=== PATIENT | male | born 1950 | race Caucasian/White ===

== ENCOUNTER 2016-11-28 20:30 | Outpatient (CLI) | payer BC, MEDICARE ==
--- OUTSIDE RECORDS SUMMARY | 2016-12-03 16:48 | XMS | Clinical Summary ---
:1950 Author Organization [facility] Address [address] [place] [address] Phone Care Team Providers Name Role Phone , Primary Care Provider Unavailable Allergies Not on File Current Medications Not on file Active Problems Not on file Social History Tobacco Use Types Packs/Day Years Used Date Never Assessed Sex Assigned at Date Recorded Not on file Last Filed Vital Signs Not on file Plan of Treatment Not on file Results Not on filefrom Last 3 Months
== END 2016-11-28 20:31 | disposition home or self-care (01) ==
LOC: SLEEPLAB 20:30
PROVIDERS: ATTEND Family Medicine
DX: G47.33 Obstructive sleep apnea (adult) (pediatric) (principal)
CPT/HCPCS: 95811

== ENCOUNTER 2016-12-30 13:03 | Outpatient (CLI) | payer BC, MEDICARE ==
[2016-12-30] MEDS ORDERED: ISOVUE-370 76%-LOCM 1 ML ONE (13:57)
--- NOTE | 2016-12-30 16:55 | CT ---
CONTRAST ENHANCED CT SOFT TISSUE NECK 12/30/16 HISTORY: Abnormal ultrasound. Evaluate for occlusion. Contrast enhanced CTA of the neck is obtained. 2D and 3D reconstructed images performed on an [employer] 3D workstation. Atherosclerotic calcification of the aorta is present. Calcifications seen in the left subclavian art arnav as well as right brachiocephalic artery and origin of the left common carotid artery. The right common carotid artery is patent. Atherosclerotic calcified and noncalcified plaque seen in the origin of the right ICA resulting in approximately 25 or 30% origin right ICA stenosis. No eviden ce of high grade stenosis or flow limiting lesions seen otherwise. The atherosclerotic plaque in the right ICA is eccentric in the medial aspect in the proximal portion of the right ICA. The left common carotid artery is patent. there is some diffuse intimal thickening in the distal left CCA. No evidence of significant stenosis however is seen. The left ICA demonstrates no significant e vidence of flow limiting lesions. There may be some diffuse soft tissue hypertrophy in the origin of the left ICA; however, this is not flow limiting and not significant. Surgical clips seen in the left carotid bifurcation. More distally, the left ICA remains the same caliber it does proximally. Normal flow seen in both vertebral arteries. IMPRESSION: Surgical changes seen in the left carotid bifurcation. No significant evidence of flow limiting lesio ns seen in the left ICA and at the surgical site in the distal left CCA. The right ICA demonstrates s ome focal eccentric area of calcified plaque in the proximal portion of the right ICA. POS: [facility]
== END 2016-12-30 13:04 | disposition home or self-care (01) ==
LOC: CT 13:03
PROVIDERS: ATTEND Thoracic Surgery (Cardiothoracic Vascular Surgery)
DX: I65.23 Occlusion and stenosis of bilateral carotid arteries (principal)
CPT/HCPCS: 70498

== ENCOUNTER 2017-04-03 14:26 | Inpatient (IN) | payer BC, MEDICARE ==
--- NOTE | 2017-04-03 14:56 | RAD ---
1 VIEW CHEST: Date: 04/03/17 COMPARISON: 02/23/16. HISTORY: Chest pain. FINDINGS: Stable left-sided transvenous pacemaker. There are sternotomy wires. Normal cardiac silhouette. Pulmo nary vessels are slightly prominent. Costophrenic angles are clear. Hyperinflation, without consolida tion or mass. No pneumothorax or acute osseous abnormalities. IMPRESSION: No acute cardiopulmonary process. No significant interval change. POS: [facility]
[2017-04-03 14:57] LABS: Hemoglobin 14.9 g/dL (14.0-18.0); Mean Corpuscular HGB CONC 32.7 g/dL (32.0-36.0); Mean Corpuscular Hemoglobin 31.9 pg (27.0-31.0); Mean Corpuscular Volume 97.5 fl (80.0-94.0); Mean Platelet Volume 7.1 fL (7.4-10.4); Platelet Count 311 thou/uL (130-400); RBC Distribution Width 11.7 % (11.5-14.5); Red Blood Cell (RBC) Count 4.67 mill/uL (4.70-6.10); White Blood Cell (WBC) Count 26.2 thou/uL (4.8-10.8)
[2017-04-03 15:02] LABS: INR-International Normal Ratio 1.1; PTT 26.1 SEC (22.9-36.1); Prothrombin Time 13.9 SEC (12.0-14.7)
[2017-04-03 15:10] LABS: ALT (SGPT) 19 U/L (8-55); AST (SGOT) 14 U/L (5-34); Alkaline Phosphatase 71 U/L (40-150); Anion Gap 11 mmol/L (10-20); BUN (Urea Nitrogen) 12 mg/dL (8.4-25.7); Bilirubin, Total 0.4 mg/dL (0.2-1.2); CK (CPK) 41 U/L (30-200); Calc. Creatinine Clearance 0 mL/min (70-130); Calcium 9.1 mg/dL (7.8-10.44); Carbon Dioxide 26 mmol/L (23-31); Chloride 101 mmol/L (98-107); Estimated GFR-MDRD 79; Globulin 3.6 g/dL (2.4-3.5); Glucose 207 mg/dL (80-115); Lipase 7 U/L (8-78); Potassium 3.9 mmol/L (3.5-5.1); Protein, Total 7.6 g/dL (5.8-8.1); Sodium 134 mmol/L (136-145)
[2017-04-03 15:11] LABS: Band 11 % (5-11); Lymphocytes 8 % (21-51); MDiff Complete? YES; Monocytes 4 % (0-10); Neutrophil 76 % (42-75); PLT Morphology Comment Appears Adequate; RBC Morphology Normal; Reactive Lymphocytes 1 % (0-10); Toxic Granulation SLIGHT
[2017-04-03 15:14] LABS: CKMB 1.9 ng/mL (0-6.6); Troponin I 0.046 ng/mL (< 0.028)
[2017-04-03 16:37] LABS: Bilirubin Negative (Negative); Blood, Urine Negative (Negative); Clarity CLEAR (Clear); Glucose, Urine (Dipstick) 500 mg/dL (Negative); Leukocyte Negative (Negative); Nitrite Negative (Negative); Protein, Urine (Dipstick) Negative (Neg-Trace); Specific Gravity, Urine 1.024 (1.002-1.036)
[2017-04-03] MEDS ORDERED: Clopidogrel Bisulfate 75 MG TAB PO SCH (17:00)
[2017-04-03] MEDS ORDERED: Digoxin 0.125 MG TAB PO SCH (17:00)
[2017-04-03] MEDS ORDERED: traMADol HCl 50 MG TAB PO PRN (17:12)
[2017-04-03] MEDS ORDERED: Lorazepam 1 MG TAB PO PRN (17:12)
[2017-04-03] MEDS ORDERED: Loratadine 10 MG TAB PO PRN (17:12)
[2017-04-03] MEDS ORDERED: Nitroglycerin 0.4 MG TAB (25 Tab Bottle) SL PRN (17:12)
[2017-04-03] MEDS ORDERED: Calcium Carbonate 500 MG ChewTAB PO PRN (17:12)
[2017-04-03] MEDS ORDERED: Mag-Al 1200 mg/1200 mg/30 ML UDCUP PO PRN (17:12)
[2017-04-03] MEDS ORDERED: Bisacodyl 5 MG TAB PO PRN (17:12)
[2017-04-03] MEDS ORDERED: cloNIDine 0.1 MG TAB PO PRN (17:12)
[2017-04-03] MEDS ORDERED: Benzonatate 100 MG CAP PO PRN (17:12)
[2017-04-03] MEDS ORDERED: Senokot 8.6 MG TAB PO PRN (17:12)
[2017-04-03] MEDS ORDERED: Diabetic Tussin 200 MG/10 ML UDCUP PO PRN (17:12)
[2017-04-03] MEDS ORDERED: hydrALAZINE 20 MG/ML VIAL SLOW IVP PRN (17:12)
[2017-04-03] MEDS ORDERED: Acetaminophen 325 MG TAB PO PRN (17:12)
[2017-04-03] MEDS ORDERED: Ondansetron HCl/PF 4 MG/2 ML Vial IVP PRN (17:12)
--- NOTE | 2017-04-03 17:35 | HP ---
PRIMARY CARE PHYSICIAN: Guevara Fairchild MD CHIEF COMPLAINT: Chest pain. HISTORY OF PRESENT ILLNESS: Mr. Sheikh a very pleasant 67-year-old male with known history o f coronary artery disease, status post CABG in the past as well as dyslipidemia; hypertension; atrial fibrillation; peripheral arterial disease in the form of coronary artery disease; and history of pac emaker, who presented to the emergency room with the above-mentioned complaints. History is mainly o btained by the patient himself and supplemented by his present in the room. Electronic medical records have been reviewed. The patient was last admitted to our facility in 02/2016 at which time shania polk was admitted for TIA and underwent a left carotid endarterectomy by Dr. Ponce. His primary cardio logist is Dr. Hoskins. The patient reports that he follows up with Dr. Hoskins every 6 months. Th ere are no recent changes in his medications and he is compliant with all of them. Mr. Sheikh reports that he has been feeling fine up until this morning. Today when he was drinking his morning coffee, he had sudden onset of chest pain. He describes it as a heavy and squeezing sensati on. It was about 7/10 in intensity. It started as pain in bilateral wrists and later he felt the pr essure in the upper epigastric and lower retrosternal area. He sat down and did eventually eased jarret y. Later while he was driving into town, he had another episode of similar chest pain in the same sp ot associated with radiation to both arms. It was also associated with some nausea and diaphoresis a s well. He denies any shortness of breath. He denies any similar symptoms recently. He has otherwi se been in his usual health and has no recent illnesses. He drove into the emergency room at the out side hospital and was eventually transferred to our facility for further evaluation. In our emergenc y room, he was found to have mild borderline elevated troponin at 0.046. He is now being admitted fo r further workup for chest pain, possible unstable angina. His chest x-ray is unremarkable and 12-le ad EKG does not show any acute ST or T-wave changes. The patient has undergone steroid injection in one of his knees by [facility]. PAST MEDICAL HISTORY: 1. Coronary artery disease, status post bypass graft. 2. History of carotid arterial disease, status post left carotid endarterectomy. 3. History of pacemaker placed. 4. CVA and TIA in the past. 5. Hypertension. 6. Dyslipidemia. 7. History of atrial fibrillation. 8. Gastroesophageal reflux disease. 9. GERD. 10. Question a history of hepatitis C. PAST SURGICAL HISTORY: 1. Coronary artery bypass graft 2 vessels in 1998. 2. Pacemaker. 3. Cardiac stenting 2-3. 4. Bilateral shoulder surgery. 5. Left carotid endarterectomy. PSYCHIATRIC HISTORY: No anxiety, depression. SOCIAL HISTORY: He is and lives with his family. No history of drug, tobacco, or alcohol ab use. FAMILY HISTORY: Significant for coronary artery disease in both of his parents. No diabetes or hype rtension runs in his family. CODE STATUS: FULL CODE discussed with the patient and his present in the room. ALLERGIES: AGGRENOX, AMBIEN, REMERON. MEDICATIONS: Aspirin 325 mg in the morning, but the patient reports that it was changed to [address] Hoskins few months ago, Protonix 40 mg daily, metoprolol unknown if it is a tartrate or succinat e, but listed as 25 mg daily, digoxin 0.125 mcg daily, Crestor 10 mg daily, Zetia 10 mg daily, Plavix 75 mg daily. REVIEW OF SYSTEMS: The following complete review of systems was negative, unless otherwise mentioned in the HPI or below: Constitutional: Weight loss or gain, ability to conduct usual activities. Sk in: Rash, itching. Eyes: Double vision, pain. ENT/Mouth: Nose bleeding, neck stiffness, pain, te nderness. Cardiovascular: Palpitations, dyspnea on exertion, orthopnea. Respiratory: Shortness of breath, wheezing, cough, hemoptysis, fever or night sweats. Gastrointestinal: Poor appetite, abdom inal pain, heartburn, nausea, vomiting, constipation, or diarrhea. Genitourinary: Urgency, frequenc y, dysuria, nocturia. Musculoskeletal: Pain, swelling. Neurologic/Psychiatric: Anxiety, depressio n. Allergy/Immunologic: Skin rash, bleeding tendency. LABORATORY AND DIAGNOSTIC DATA: CBC shows WBC 26.2, platelet of 311,000, neutrophils 76%, hemoglobin 14.9, platelet count of 311. PT, PTT, and INR within normal limits. Serum chemistries: Sodium 134 , blood sugar 207, otherwise unremarkable. CK-MB is normal at 1.2, troponin mildly elevated at 0.046 and BNP normal at 55, lipase is normal. Chest x-ray by my review was negative for any acute infiltr ate, effusion, or edema. A 12-lead EKG without any acute changes. PHYSICAL EXAMINATION: VITAL SIGNS: Upon presentation, blood pressure 152/79, pulse of 77, saturating 96% on room air, resp irations 20, temperature 98. GENERAL: No acute distress, awake, alert, and oriented x3, sitting comfortably in the bed. HEENT: Mucous membrane is moist and pink. No oropharyngeal exudate or erythema. Head is normocepha lic, atraumatic. Pupils are equal, reactive to light and accommodation. Extraocular movements are i ntact. NECK: Supple without any lymphadenopathy, JVD, or bruit. CHEST: Clear to auscultation without any wheezing, rales, or rhonchi. Rate and rhythm is regular wi thout any murmur, rubs, or gallops. ABDOMEN: Obese, soft, nontender, nondistended, positive bowel sounds. EXTREMITIES: Free of any cyanosis, clubbing, or edema. NEUROLOGIC: Nonfocal. SKIN: Free of any rashes or bruises. Feels warm and dry to touch. PSYCHIATRIC: Normal affect. IMPRESSION AND PLAN: 1. Chest pain. Given the patient's extensive history of peripheral arterial disease as well as sully nary artery disease, his symptoms sound atypical and it can possibly be angina. We will continue to trend serial cardiac enzymes and obtain a transthoracic echocardiogram at this time. We will consult Cardiology for further recommendations. The patient might need a repeat cardiac catheterization. A t this time, we will defer the decision to order a stress test with Cardiology colleagues. We will c ontinue his aspirin and beta morales as well as his Plavix. Use sublingual nitroglycerin as needed. For some reason, the patient is not on any TAIWO inhibitors. 2. Leukocytosis. This is secondary to the steroid injection he has received in his knee yesterday. No clinical signs or symptoms to suggest infection. No indication for antibiotic or sepsis workup. 3. History of atrial fibrillation. The chart review reviewed that the patient has declined anticoag ulation in the past. This will continue to be managed by Cardiology as an outpatient. He is in norm al sinus rhythm at this time. Continue digoxin for now along with the beta blockers. 4. History of cerebrovascular accident and transient ischemic attack. Once again, continue with asp irin and Plavix. 5. History of coronary artery disease, status post coronary artery bypass graft and stenting. Carley nue cardiac prudent medications as above. 6. History of pacemaker placement. 7. Dyslipidemia. Continue Zetia and Crestor and recheck a lipid panel. 8. Carotid arterial disease. He is status post left carotid endarterectomy and is being followed up by Dr. Gray as an outpatient. 9. Hypertension. Resume home medications and monitor closely. 10. Code status: FULL CODE. Discussed with the patient. 11. Deep venous thrombosis and gastrointestinal prophylaxis and supportive and symptomatic care. DISPOSITION: Mr. Sheikh is currently being admitted for chest pain, likely angina. Further management will depend upon his clinical course and the recommendations from Cardiology.
[2017-04-03 17:41] VITALS: BMI 30.4
[2017-04-03 17:48] LABS: Cardiac Risk 2.9 (Less than 4.5)
[2017-04-03 18:29] LABS: Troponin I 0.071 ng/mL (< 0.028)
[2017-04-03] MEDS: Digoxin 0.125 MG TAB PO SCH (20:24)
[2017-04-03] MEDS: Clopidogrel Bisulfate 75 MG TAB PO SCH (20:25)
[2017-04-03] MEDS: Ezetimibe 10 MG TAB PO SCH (20:25)
[2017-04-03] MEDS: Famotidine 20 MG TAB PO SCH (20:25)
[2017-04-03] MEDS: Rosuvastatin 10 MG TAB PO SCH (20:25)
[2017-04-03] MEDS ORDERED: Enoxaparin Sodium 40 MG/0.4 ML SYRINGE SC SCH (21:00)
[2017-04-03 21:12] LABS: Troponin I 0.073 ng/mL (< 0.028)
--- NOTE | 2017-04-03 23:25 | CON ---
DATE OF CONSULTATION: 04/03/2017 INDICATION FOR CONSULTATION: A 67-year-old patient with history of known coronary artery disease, st atus post bypass surgery, status post angioplasty and stent placement, who presented to the emergency room complaining of chest discomfort. HISTORY OF PRESENT ILLNESS: This very pleasant 67-year-old gentleman, who has been seen by Dr. Mario hopkins in the past and has undergone bypass surgery. I believe he said he underwent surgery back in 9 with 2-vessel bypass. After that, he underwent angioplasty and stent placement. He also had pacem rip insertion in 2003. He has had a left carotid endarterectomy by Dr. Ponce. He had a TIA in 7. He has actually been doing quite well and he says he has actually been due to some remodeling. Rosy polk was at home this morning, had a cup of coffee and then started developing some chest discomfort whi ch was actually in the upper abdominal area and chest area, but he said he developed hand numbness th at kind of resolved after he took an aspirin. He then felt better and around 12:00 today or 12:30 wh en he went to get into his truck, he noticed some of the same symptoms again. He then went to the em ergency room and was given nitroglycerin. At the time he arrived to the emergency room, the pain was already resolving. He has had the worst pain, got worse 7/10. He was given nitroglycerin and the p ain has slowly been resolved. Also, again just like it did with the aspirin, but he did appear to be somewhat short of breath and clammy according to the patient's history. Otherwise at this time, he is comfortable. His EKG does not show any acute changes. His enzymes are still indeterminate. His troponin I was 0.046. The BNP was only 55. His potassium was 3.9. Of note, his WBC was 26.2 with h emoglobin 14.9. He denied any recent fevers or illnesses, however. PAST MEDICAL HISTORY: Significant for bypass surgery, angioplasty, and stent placement. We are unce rtain as to which vessels were underwent angioplasty and stent placement. He had a pacemaker in 2003 , bypass surgery was in 1998. He has some history in the past also of atrial fibrillation and dyslip idemia. He has a hiatal hernia. He had a left carotid endarterectomy, bilateral cataract surgery ab out a year and a half ago, gastroesophageal reflux disease. He also had a TIA in 2017. SOCIAL HISTORY: He is . He stopped smoking about 20 years ago. He has no alcohol use. ALLERGIES: None. MEDICATIONS: Include Crestor 10 mg a day, Zetia 10 mg a day, Protonix 40 mg a day, metoprolol ER 25 mg b.i.d., digoxin 125 mcg daily, fish oil 1200 mg daily, Plavix 75 mg a day, and aspirin 325 mg once a day. REVIEW OF SYSTEMS: Twelve point review of systems is unremarkable, so he complains of some decreased vision associated with this adequate cataract surgery. He also complains of some knee pain, which m ost likely osteoarthritis. Otherwise, 12 point review of systems unremarkable except what was noted in the history of present illness. PHYSICAL EXAMINATION: GENERAL: Reveals a well-developed, well-nourished gentleman, who is in no acute distress at this [facility]. He is alert and oriented. VITAL SIGNS: Blood pressure was inaccurate, heart rate was in the 80s and 90s and shows a normal sin us rhythm. O2 saturation 98%, respiratory rate 18. His weight is 210 pounds. HEENT: Shows head to be normocephalic, atraumatic. He has a well healed surgical incision over the left carotid area. There were no significant bruits noted. CHEST: Clear to auscultation without rales, rhonchi, or wheezing. CARDIOVASCULAR: Exam reveals a regular rate and rhythm. Normal S1, S2. I cannot hear an S3 nor an S4, or any significant murmurs, heaves, thrills, bruits, or rubs. There is a well-healed surgical in cision on the left infraclavicular area after pacemaker insertion. ABDOMEN: Soft and nontender, obese. Positive bowel sounds are present. No tenderness is noted. No masses were noted. EXTREMITIES: Showed no clubbing, cyanosis, or edema. Pedal pulses are difficult to palpate but popl iteal pulses are present. SKIN: Warm and dry. NEUROLOGIC: The patient is fully intact. He has normal strength and normal tone. He is appropriate psychologically. EKG shows a normal sinus rhythm with occasional PVCs and incomplete right bundle branch block, but no acute changes otherwise are noted. LABORATORY DATA: As noted above, but gives elevated white blood cell count of 26.2, platelet count w as 311, hemoglobin is 14.9. He had 11 bands and 76 neutrophils. INR 1.1. Again, troponin is 0.046, BNP was 55 and creatinine 0.95. Sodium 134. At this time, the patient will [facility]. We will monitor him very carefully. I would suggest we start him on Lovenox and then ru le out for myocardial infarction. If indicated, the patient can undergo a cardiac catheterization on Thursday. If he stabilizes and perhaps, he can undergo a stress test tomorrow morning to rule out tona dence of underlying ischemia. We will review his records from the office to see whether or not he forte s had any significant workup recently if he has had a stress test or echocardiogram. IMPRESSION: 1. Chest pain with a history of coronary artery disease, bypass surgery and angioplasty and stent pl acements. We will monitor the patient very carefully for non-ST segment elevation myocardial infarct ion. 2. History of hypertension, which is under relatively good control at this time. 3. Hypercholesterolemia. He will continue his medications. 4. History of pacemaker insertion. We will determine whether or not this has been recently interrog ated. I believe, he does follow up routinely with Dr. Hoskins. 5. History of gastroesophageal reflux disease. We will continue on some type of Protonix, this may be the etiology of his chest discomfort. 6. History of transient ischemic attacks. He does not appear to be having transient ischemic attack s at this time and appears to be stable after he underwent left carotid endarterectomy.
[2017-04-04] MEDS: diphenhydrAMINE 25 MG CAP PO PRN ×2 (03:12→21:12)
[2017-04-04 04:23] LABS: #Lymphocytes 3.6 thou/uL (1.20-3.40); #Monocytes 2.4 thou/uL (0.11-0.59); %Basophils 0.1 % (0.0-1.0); %Eosinophils 0.2 % (0.0-10.0); %Lymphocytes 14.3 % (21.0-51.0); %Monocytes 9.7 % (0.0-10.0); %Neutrophils 75.8 % (42.0-75.0); Hemoglobin 14.4 g/dL (14.0-18.0); Mean Corpuscular HGB CONC 33.8 g/dL (32.0-36.0); Mean Corpuscular Hemoglobin 32.8 pg (27.0-31.0); Mean Corpuscular Volume 97.1 fl (80.0-94.0); Mean Platelet Volume 7.4 fL (7.4-10.4); Platelet Count 274 thou/uL (130-400); Red Blood Cell (RBC) Count 4.39 mill/uL (4.70-6.10)
[2017-04-04 04:34] LABS: Anion Gap 8 mmol/L (10-20); BUN (Urea Nitrogen) 13 mg/dL (8.4-25.7); Calc. Creatinine Clearance 111 mL/min (70-130); Carbon Dioxide 29 mmol/L (23-31); Chloride 102 mmol/L (98-107); Estimated GFR-MDRD 86; Glucose 138 mg/dL (80-115); Sodium 135 mmol/L (136-145)
[2017-04-04] MEDS: Aspirin 325 MG TAB PO SCH (08:42)
[2017-04-04] MEDS: Famotidine 20 MG TAB PO SCH ×2 (08:43→21:15)
[2017-04-04] MEDS ORDERED: Digoxin 0.125 MG TAB PO SCH (09:00)
[2017-04-04] MEDS ORDERED: Clopidogrel Bisulfate 75 MG TAB PO SCH (09:00)
[2017-04-04] MEDS ORDERED: Enoxaparin Sodium 40 MG/0.4 ML SYRINGE SC SCH (09:00)
[2017-04-04] MEDS ORDERED: Ezetimibe 10 MG TAB PO SCH (09:00)
[2017-04-04] MEDS ORDERED: Communication Order-Pharmacy FS SCH (11:00)
--- NOTE | 2017-04-04 11:25 | PRG ---
DATE OF SERVICE: 04/04/2017 HISTORY: Mr. Sheikh is doing well today. He is not having chest pain or pressure currently. PHYSICAL EXAMINATION: VITAL SIGNS: Blood pressure 116/58, pulse 60. LUNGS: Clear. CARDIAC: Normal S1, normal S2. ABDOMEN: Soft, nontender. EXTREMITIES: No edema. LABORATORY DATA: Cardiac enzymes peaked at 0.073 in the indeterminate range, but clearly out of the normal range. ASSESSMENT: 1. Status post bypass 19 years ago. 2. Subsequent stent implantation. 3. Previous pacemaker. 4. Unstable angina and acute coronary syndrome. 5. Hypercholesterolemia, controlled. LDL is 64. PLAN: We would recommend cardiac catheterization on Thursday, will be the most definitive test in view of the increased troponin level. Patient understands the procedure, we will tentatively schedule fo r Thursday morning. In the meantime, we will increase Lovenox dose.
[2017-04-04] MEDS ORDERED: Enoxaparin Sodium 80 MG/0.8 ML SYRINGE SC SCH (12:00)
--- NOTE | 2017-04-04 13:46 | PDOC.PN ---
- Subjective Encounter Start Date: 04/04/17 Encounter Start Time: 13:44 Subjective: feels well. no more chest pain or arm paraesthesias - Objective MAR Reviewed: Yes Vital Signs & Weight: Vital Signs (12 hours) Temp Pulse Resp BP BP Pulse Ox 04/04/17 10:55 97.4 F L 61 16 148/76 H 97 04/04/17 08:00 97.5 F L 64 18 04/04/17 07:56 97.6 F 61 20 116/58 L 95 04/04/17 03:12 97.5 F L 64 18 116/56 L 96 Weight Weight 212 lb I&O: 04/03/17 04/04/17 04/05/17 06:59 06:59 06:59 Intake Total 480 Output Total 675 775 Balance -195 -775 Result Diagrams: 04/04/17 03:20 04/04/17 03:20 Additional Labs: Laboratory Tests 04/03/17 04/03/17 04/03/17 14:40 14:40 17:45 Troponin I 0.046 H 0.071 H Triglycerides 49 Cholesterol 113 LDL Cholesterol, Calc 64 HDL Cholesterol 39 04/03/17 20:36 Troponin I 0.073 H Triglycerides Cholesterol LDL Cholesterol, Calc HDL Cholesterol Phys Exam - Physical Examination Constitutional: NAD HEENT: PERRLA, moist MMs, sclera anicteric, oral pharynx no lesions Neck: no nodes, no JVD, supple, full ROM Respiratory: no wheezing, no rales, no rhonchi, clear to auscultation bilateral Cardiovascular: RRR, no significant murmur, no rub, gallop Gastrointestinal: soft, non-tender, no distention, positive bowel sounds Musculoskeletal: no edema, pulses present Neurological: non-focal, normal sensation, moves all 4 limbs Psychiatric: normal affect, A&O x 3 Skin: no rash Dx/Plan (1) Unstable angina Status: Acute (2) H/O: CVA (cerebrovascular accident) Code(s): Z86.73 - PRSNL HX OF TIA (TIA), AND CEREB INFRC W/O RESID DEFICITS Status: Chronic (3) H/O carotid endarterectomy Code(s): Z98.890 - OTHER SPECIFIED POSTPROCEDURAL STATES Status: Chronic (4) Atrial fibrillation Code(s): I48.91 - UNSPECIFIED ATRIAL FIBRILLATION Status: Chronic Qualifiers: Atrial fibrillation type: paroxysmal Qualified Code(s): I48.0 - Paroxysmal atrial fibrillation (5) Coronary artery disease Code(s): I25.10 - ATHSCL HEART DISEASE OF [place] CORONARY ARTERY W/O ANG PCTRS Status: Chronic (6) Gout Code(s): M10.9 - GOUT, UNSPECIFIED Status: Chronic (7) Hepatitis C Code(s): B19.20 - UNSPECIFIED VIRAL HEPATITIS C WITHOUT HEPATIC COMA Status: Chronic (8) Hyperlipidemia Code(s): E78.5 - HYPERLIPIDEMIA, UNSPECIFIED Status: Chronic (9) Hypertension Code(s): I10 - ESSENTIAL (PRIMARY) HYPERTENSION Status: Chronic - Plan plan discussed w/ family, DVT proph w/SCDs Discussed w Cardiology.dae UA.will change to Inpt status -: Therapeutic dose lovenox. Cont ASA,statin,BB,plavix.Not on TAIWO-I/ARB -: Cardiac Cath dae Thursday -: remians HD stable.cont to monitor -: ECHO done,results pending.will follow * . Review of Systems - Review of Systems Constitutional: negative: fever, chills, sweats, weakness, malaise, other ENT: negative: Ear Pain, Ear Discharge, Nose Pain, Nose Discharge, Nose Congestion, Mouth Pain, Mouth Swelling, Throat Pain, Throat Swelling, Other Respiratory: negative: Cough, Dry, Shortness of Breath, Hemoptysis, SOB with Excertion, Pleuritic Pain, Sputum, Wheezing Cardiovascular: negative: chest pain, palpitations, orthopnea, paroxysmal nocturnal dyspnea, edema, light headedness, other Gastrointestinal: negative: Nausea, Vomiting, Abdominal Pain, Diarrhea, Constipation, Melena, Hematochezia, Other Genitourinary: negative: Dysuria, Frequency, Incontinence, Hematuria, Retention , Other Musculoskeletal: negative: Neck Pain, Shoulder Pain, Arm Pain, Back Pain, Hand Pain, Leg Pain, Foot Pain, Other Skin: negative: Rash, Lesions, Jefe, Bruising, Other Neurological: negative: Weakness, Numbness, Incoordination, Change in Speech, Confusion, Seizures, Other - Medications/Allergies Allergies/Adverse Reactions: Allergies Allergy/AdvReac Type Severity Reaction Status Date / Time dipyridamole [From Aggrenox] Allergy Headache Verified 09/13/15 15:31 mirtazapine [From Remeron] Allergy Verified 09/13/15 15:31 zolpidem tartrate Allergy Verified 09/13/15 15:31 [From Ambien] hydrocodone AdvReac Anxiety Verified 02/26/16 07:13 tramadol [From Ultram] AdvReac urinary Verified 02/26/16 07:10 retention Medications: Current Medications Acetaminophen (Tylenol) 650 mg PO Q4H PRN PRN Reason: Headache/Fever or Pain Al Hydroxide/Mg Hydroxide (Maalox) 30 ml PO Q6H PRN PRN Reason: Heartburn or Indigestion Aspirin (Aspirin) 325 mg PO DAILY [facility] Last Admin: 04/04/17 08:42 Dose: Not Given Benzonatate (Tessalon) 100 mg PO Q4H PRN PRN Reason: Cough Bisacodyl (Dulcolax) 10 mg PO DAILYPRN PRN PRN Reason: Constipation Calcium Carbonate (Tums) 1,000 mg PO Q4H PRN PRN Reason: Heartburn or Indigestion Clonidine (Catapres) 0.1 mg PO Q4H PRN PRN Reason: Systolic BP > 160 Clopidogrel Bisulfate (Plavix) 75 mg PO HS [facility] Last Admin: 04/03/17 20:25 Dose: 75 mg Diazepam (Valium) 5 mg PO 0800 [facility] Stop: 04/06/17 10:00 Digoxin (Lanoxin) 0.125 mg PO HS [facility] Last Admin: 04/03/17 20:24 Dose: 0.125 mg Diphenhydramine HCl (Benadryl) 25 mg PO HS PRN PRN Reason: Itching & Insomnia Last Admin: 04/04/17 03:12 Dose: 25 mg Ezetimibe (Zetia) 10 mg PO HS [facility] Last Admin: 04/03/17 20:25 Dose: 10 mg Enoxaparin Sodium (Lovenox) 80 mg SC 0900,2100 [facility] Stop: 04/05/17 21:01 Enoxaparin Sodium (Lovenox) 80 mg SC 1200 [facility] Stop: 04/04/17 14:00 Last Admin: 04/04/17 11:40 Dose: 80 mg Famotidine (Pepcid) 20 mg PO BID [facility] Last Admin: 04/04/17 08:43 Dose: Not Given Guaifenesin (Robitussin Sf) 200 mg PO Q4H PRN PRN Reason: Cough Hydralazine HCl (Apresoline) 10 mg SLOW IVP Q4H PRN PRN Reason: Systolic BP > 170 Sodium Chloride (Normal Saline 0.9%) 1,000 mls @ 100 mls/hr IV .Q10H [facility] Loratadine (Claritin) 10 mg PO DAILYPRN PRN PRN Reason: Sinus Symptoms Lorazepam (Ativan) 1 mg PO Q4H PRN PRN Reason: Anxiety/Agitation Metoprolol Succinate (Toprol Xl) 25 mg PO [facility] Last Admin: 04/03/17 20:25 Dose: 25 mg Nitroglycerin (Nitrostat) 0.4 mg SL Q5MIN PRN PRN Reason: Chest Pain Ondansetron HCl (Zofran) 4 mg IVP Q6H PRN PRN Reason: Nausea/Vomiting Rosuvastatin Calcium (Crestor) 10 mg PO [facility] Last Admin: 04/03/17 20:25 Dose: 10 mg Senna (Senokot) 2 tab PO HSPRN PRN PRN Reason: Constipation Sodium Chloride (Flush - Normal Saline) 10 ml IVF PRN PRN PRN Reason: Saline Flush Tramadol HCl (Ultram) 50 mg PO Q4H PRN PRN Reason: Moderate Pain (4-6)
[2017-04-04] MEDS: Enoxaparin Sodium 80 MG/0.8 ML SYRINGE SC SCH (21:11)
[2017-04-04] MEDS: Digoxin 0.125 MG TAB PO SCH (21:13)
[2017-04-04] MEDS: Clopidogrel Bisulfate 75 MG TAB PO SCH (21:13)
[2017-04-04] MEDS: Ezetimibe 10 MG TAB PO SCH (21:13)
[2017-04-04] MEDS: Rosuvastatin 10 MG TAB PO SCH (21:13)
[2017-04-05] MEDS: Aspirin 325 MG TAB PO SCH ×2 (08:59→21:06)
[2017-04-05] MEDS: Enoxaparin Sodium 80 MG/0.8 ML SYRINGE SC SCH ×2 (09:00→21:06)
[2017-04-05] MEDS: Famotidine 20 MG TAB PO SCH ×2 (09:00→21:06)
--- NOTE | 2017-04-05 11:50 | PDOC.PN ---
- Subjective Encounter Start Date: 04/05/17 Encounter Start Time: 11:48 Subjective: feels good. no more chest pain.no SOB/DUNCAN - Objective MAR Reviewed: Yes Vital Signs & Weight: Vital Signs (12 hours) Temp Pulse Resp BP Pulse Ox 04/05/17 08:44 97.9 F 63 17 144/63 H 94 L 04/05/17 08:00 97.5 F L 60 17 95 Weight Weight 212 lb I&O: 04/04/17 04/05/17 04/06/17 06:59 06:59 06:59 Intake Total 480 720 240 Output Total 675 775 Balance -195 -55 240 Result Diagrams: 04/04/17 03:20 04/04/17 03:20 EKG Reviewed by me: Yes Phys Exam - Physical Examination Constitutional: NAD HEENT: PERRLA, moist MMs, sclera anicteric, oral pharynx no lesions Neck: no nodes, no JVD, supple, full ROM Respiratory: no wheezing, no rales, no rhonchi, clear to auscultation bilateral Cardiovascular: RRR, no significant murmur, no rub, gallop Gastrointestinal: soft, non-tender, no distention, positive bowel sounds Musculoskeletal: no edema, pulses present Neurological: non-focal, normal sensation, moves all 4 limbs Psychiatric: normal affect, A&O x 3 Skin: no rash Dx/Plan (1) Unstable angina Status: Acute (2) H/O: CVA (cerebrovascular accident) Code(s): Z86.73 - PRSNL HX OF TIA (TIA), AND CEREB INFRC W/O RESID DEFICITS Status: Chronic (3) H/O carotid endarterectomy Code(s): Z98.890 - OTHER SPECIFIED POSTPROCEDURAL STATES Status: Chronic (4) Atrial fibrillation Code(s): I48.91 - UNSPECIFIED ATRIAL FIBRILLATION Status: Chronic Qualifiers: Atrial fibrillation type: paroxysmal Qualified Code(s): I48.0 - Paroxysmal atrial fibrillation (5) Coronary artery disease Code(s): I25.10 - ATHSCL HEART DISEASE OF [place] CORONARY ARTERY W/O ANG PCTRS Status: Chronic (6) Gout Code(s): M10.9 - GOUT, UNSPECIFIED Status: Chronic (7) Hepatitis C Code(s): B19.20 - UNSPECIFIED VIRAL HEPATITIS C WITHOUT HEPATIC COMA Status: Chronic (8) Hyperlipidemia Code(s): E78.5 - HYPERLIPIDEMIA, UNSPECIFIED Status: Chronic (9) Hypertension Code(s): I10 - ESSENTIAL (PRIMARY) HYPERTENSION Status: Chronic - Plan DVT proph w/SCDs Cont ASA,plavix,BB,statin.BID lovenox -: not on any TAIWO-I for unknown reasons-will defer to cardiology -: cardiac Cath tomorrow am. -: hemodynamically stable * . Review of Systems - Review of Systems Constitutional: negative: fever, chills, sweats, weakness, malaise, other Eyes: negative: Pain, Vision Change, Conjunctivae Inflammation, Eyelid Inflammation, Redness, Other ENT: negative: Ear Pain, Ear Discharge, Nose Pain, Nose Discharge, Nose Congestion, Mouth Pain, Mouth Swelling, Throat Pain, Throat Swelling, Other Respiratory: negative: Cough, Dry, Shortness of Breath, Hemoptysis, SOB with Excertion, Pleuritic Pain, Sputum, Wheezing Cardiovascular: negative: chest pain, palpitations, orthopnea, paroxysmal nocturnal dyspnea, edema, light headedness, other Gastrointestinal: negative: Nausea, Vomiting, Abdominal Pain, Diarrhea, Constipation, Melena, Hematochezia, Other Genitourinary: negative: Dysuria, Frequency, Incontinence, Hematuria, Retention , Other Musculoskeletal: negative: Neck Pain, Shoulder Pain, Arm Pain, Back Pain, Hand Pain, Leg Pain, Foot Pain, Other Skin: negative: Rash, Lesions, Jefe, Bruising, Other Neurological: negative: Weakness, Numbness, Incoordination, Change in Speech, Confusion, Seizures, Other - Medications/Allergies Allergies/Adverse Reactions: Allergies Allergy/AdvReac Type Severity Reaction Status Date / Time dipyridamole [From Aggrenox] Allergy Headache Verified 09/13/15 15:31 mirtazapine [From Remeron] Allergy Verified 09/13/15 15:31 zolpidem tartrate Allergy Verified 09/13/15 15:31 [From Ambien] hydrocodone AdvReac Anxiety Verified 02/26/16 07:13 tramadol [From Ultram] AdvReac urinary Verified 02/26/16 07:10 retention Medications: Current Medications Acetaminophen (Tylenol) 650 mg PO Q4H PRN PRN Reason: Headache/Fever or Pain Al Hydroxide/Mg Hydroxide (Maalox) 30 ml PO Q6H PRN PRN Reason: Heartburn or Indigestion Aspirin (Aspirin) 325 mg PO HS [facility] Benzonatate (Tessalon) 100 mg PO Q4H PRN PRN Reason: Cough Bisacodyl (Dulcolax) 10 mg PO DAILYPRN PRN PRN Reason: Constipation Calcium Carbonate (Tums) 1,000 mg PO Q4H PRN PRN Reason: Heartburn or Indigestion Clonidine (Catapres) 0.1 mg PO Q4H PRN PRN Reason: Systolic BP > 160 Clopidogrel Bisulfate (Plavix) 75 mg PO HS [facility] Last Admin: 04/04/17 21:13 Dose: 75 mg Diazepam (Valium) 5 mg PO 0800 [facility] Stop: 04/06/17 10:00 Digoxin (Lanoxin) 0.125 mg PO [facility] Last Admin: 04/04/17 21:13 Dose: 0.125 mg Diphenhydramine HCl (Benadryl) 25 mg PO HS PRN PRN Reason: Itching & Insomnia Last Admin: 04/04/17 21:12 Dose: 25 mg Ezetimibe (Zetia) 10 mg PO [facility] Last Admin: 04/04/17 21:13 Dose: 10 mg Enoxaparin Sodium (Lovenox) 80 mg SC 0900,2100 [facility] Stop: 04/05/17 21:01 Last Admin: 04/05/17 09:00 Dose: 80 mg Famotidine (Pepcid) 20 mg PO BID [facility] Last Admin: 04/05/17 09:00 Dose: Not Given Guaifenesin (Robitussin Sf) 200 mg PO Q4H PRN PRN Reason: Cough Hydralazine HCl (Apresoline) 10 mg SLOW IVP Q4H PRN PRN Reason: Systolic BP > 170 Sodium Chloride (Normal Saline 0.9%) 1,000 mls @ 100 mls/hr IV .Q10H [facility] Loratadine (Claritin) 10 mg PO DAILYPRN PRN PRN Reason: Sinus Symptoms Lorazepam (Ativan) 1 mg PO Q4H PRN PRN Reason: Anxiety/Agitation Metoprolol Succinate (Toprol Xl) 25 mg PO [facility] Last Admin: 04/04/17 21:14 Dose: 25 mg Nitroglycerin (Nitrostat) 0.4 mg SL Q5MIN PRN PRN Reason: Chest Pain Ondansetron HCl (Zofran) 4 mg IVP Q6H PRN PRN Reason: Nausea/Vomiting Rosuvastatin Calcium (Crestor) 10 mg PO HS [facility] Last Admin: 04/04/17 21:13 Dose: 10 mg Senna (Senokot) 2 tab PO HSPRN PRN PRN Reason: Constipation Sodium Chloride (Flush - Normal Saline) 10 ml IVF PRN PRN PRN Reason: Saline Flush Tramadol HCl (Ultram) 50 mg PO Q4H PRN PRN Reason: Moderate Pain (4-6)
[2017-04-05] MEDS: Rosuvastatin 10 MG TAB PO SCH (21:07)
[2017-04-05] MEDS: diphenhydrAMINE 25 MG CAP PO PRN (21:07)
[2017-04-05] MEDS: Ezetimibe 10 MG TAB PO SCH (21:09)
[2017-04-05] MEDS: Digoxin 0.125 MG TAB PO SCH (21:09)
[2017-04-05] MEDS: Clopidogrel Bisulfate 75 MG TAB PO SCH (21:09)
[2017-04-06] MEDS: Famotidine 20 MG TAB PO SCH ×2 (05:53→19:57)
[2017-04-06] MEDS ORDERED: Sodium Chloride 0.9% 1,000 ML IV SCH ×2 (06:00→15:00)
[2017-04-06] MEDS ORDERED: Heparin 10,000 UNITS/1 ML VIAL ONE (07:14)
[2017-04-06] MEDS ORDERED: Lidocaine 1% (PF) 30 ML VIAL ONE (07:14)
[2017-04-06] MEDS ORDERED: Midazolam HCl 2 mg/2 ml Vial ONE (07:43)
[2017-04-06] MEDS ORDERED: Fentanyl 100 MCG/2 ML VIAL ONE (07:43)
[2017-04-06] MEDS ORDERED: Iopamidol 370 76% 100 ML VIAL ONE (07:56)
[2017-04-06] MEDS ORDERED: Iopamidol 370 76% 50 ML VIAL FS ONE (07:56)
[2017-04-06] MEDS ORDERED: Diazepam 5 MG TAB PO SCH (08:00)
[2017-04-06] MEDS ORDERED: Bivalirudin 250 MG VIAL ONE (08:10)
[2017-04-06] MEDS ORDERED: Nitroglycerin 100MG/250ML BOT 250 ML ONE (08:16)
[2017-04-06] MEDS ORDERED: Morphine 4 MG/ML Carpuject SLOW IVP PRN (09:12)
[2017-04-06] MEDS ORDERED: Morphine 5 MG/ML SYRINGE SLOW IVP PRN ×2 (09:17→09:18)
--- NOTE | 2017-04-06 15:43 | PDOC.PN ---
- Subjective Encounter Start Date: 04/06/17 Encounter Start Time: 15:40 Subjective: post cath, PCI x 2, no chest pain - Objective MAR Reviewed: Yes Vital Signs & Weight: Vital Signs (12 hours) Temp Pulse Resp BP Pulse Ox 04/06/17 08:15 97.0 F L 60 17 147/72 H 97 04/06/17 07:40 97.7 F 60 16 97 04/06/17 05:30 97.7 F 60 16 135/67 94 L Weight Weight 212 lb I&O: 04/05/17 04/06/17 04/07/17 06:59 06:59 06:59 Intake Total 720 960 Output Total 775 900 Balance -55 60 Result Diagrams: 04/04/17 03:20 04/04/17 03:20 Phys Exam - Physical Examination Neck: no JVD Respiratory: clear to auscultation bilateral Cardiovascular: RRR, no significant murmur Gastrointestinal: soft, non-tender, positive bowel sounds Musculoskeletal: no edema Dx/Plan (1) Unstable angina Status: Acute (2) Atrial fibrillation Code(s): I48.91 - UNSPECIFIED ATRIAL FIBRILLATION Status: Chronic Qualifiers: Atrial fibrillation type: paroxysmal Qualified Code(s): I48.0 - Paroxysmal atrial fibrillation (3) Coronary artery disease Code(s): I25.10 - ATHSCL HEART DISEASE OF [place] CORONARY ARTERY W/O ANG PCTRS Status: Chronic Qualifiers: Coronary Disease-Associated Artery/Lesion type: [place] artery [place] vs. transplanted heart: [place] heart Associated angina: with unstable angina Qualified Code(s): I25.110 - Atherosclerotic heart disease of [place] coronary artery with unstable angina pectoris (4) Hepatitis C Code(s): B19.20 - UNSPECIFIED VIRAL HEPATITIS C WITHOUT HEPATIC COMA Status: Chronic (5) Hyperlipidemia Code(s): E78.5 - HYPERLIPIDEMIA, UNSPECIFIED Status: Chronic (6) Hypertension Code(s): I10 - ESSENTIAL (PRIMARY) HYPERTENSION Status: Chronic - Plan post cath with PCI, cont current tx * .
--- NOTE | 2017-04-06 17:10 | EKG ---
Test Reason : S/P STENT Blood Pressure : / mmHG Vent. Rate : 065 BPM Atrial Rate : 065 BPM P-R Int : 220 ms QRS Dur : 090 ms QT Int : 402 ms P-R-T Axes : 057 001 035 degrees QTc Int : 418 ms Sinus rhythm with 1st degree A-V block Otherwise normal ECG When compared with ECG of 03-APR-2017 14:34, (Unconfirmed) Premature ventricular complexes are no longer Present NH interval has increased ST no longer depressed in Anterolateral leads Nonspecific T wave abnormality no longer evident in Anterolateral leads Confirmed by DR. Oswaldo HAIDER ([id number]) on 04/06/2017 5:08:56 PM Referred By: BLANCA Confirmed By:DR. Oswaldo HAIDER
[2017-04-06] MEDS: Ezetimibe 10 MG TAB PO SCH (19:54)
[2017-04-06] MEDS: Rosuvastatin 10 MG TAB PO SCH (19:55)
[2017-04-06] MEDS: Digoxin 0.125 MG TAB PO SCH (19:55)
[2017-04-06] MEDS: diphenhydrAMINE 25 MG CAP PO PRN (19:55)
[2017-04-06] MEDS: Aspirin 325 MG TAB PO SCH (19:56)
[2017-04-06] MEDS: Clopidogrel Bisulfate 75 MG TAB PO SCH (19:57)
[2017-04-07 05:47] LABS: #Eosinphils 0.3 thou/uL (0.0-0.7); #Lymphocytes 2.7 thou/uL (1.20-3.40); #Monocytes 1.2 thou/uL (0.11-0.59); #Neutrophils 5.8 thou/uL (1.40-6.50); %Basophils 0.1 % (0.0-1.0); %Eosinophils 2.8 % (0.0-10.0); %Lymphocytes 27.2 % (21.0-51.0); %Monocytes 11.9 % (0.0-10.0); %Neutrophils 58.1 % (42.0-75.0); Hemoglobin 14.4 g/dL (14.0-18.0); Mean Corpuscular HGB CONC 31.5 g/dL (32.0-36.0); Mean Corpuscular Hemoglobin 30.5 pg (27.0-31.0); Mean Corpuscular Volume 96.9 fl (80.0-94.0); Mean Platelet Volume 6.9 fL (7.4-10.4); Platelet Count 250 thou/uL (130-400); RBC Distribution Width 11.6 % (11.5-14.5); Red Blood Cell (RBC) Count 4.71 mill/uL (4.70-6.10)
[2017-04-07 05:56] LABS: ALT (SGPT) 24 U/L (8-55); AST (SGOT) 20 U/L (5-34); Albumin 3.2 g/dL (3.4-4.8); Alkaline Phosphatase 66 U/L (40-150); Anion Gap 8 mmol/L (10-20); BUN (Urea Nitrogen) 11 mg/dL (8.4-25.7); Bilirubin, Total 0.6 mg/dL (0.2-1.2); Calc. Creatinine Clearance 111 mL/min (70-130); Calcium 8.6 mg/dL (7.8-10.44); Carbon Dioxide 29 mmol/L (23-31); Chloride 102 mmol/L (98-107); Estimated GFR-MDRD 86; Glucose 141 mg/dL (80-115); Potassium 4.5 mmol/L (3.5-5.1); Protein, Total 6.2 g/dL (5.8-8.1); Sodium 134 mmol/L (136-145)
[2017-04-07] MEDS: Famotidine 20 MG TAB PO SCH (08:26)
--- NOTE | 2017-04-07 08:51 | DIS ---
DATE OF ADMISSION: 04/03/2017 DATE OF DISCHARGE: 04/07/2017 PRIMARY CARE PROVIDER: Guevara Fairchild M.D. DELIVERY DRIVER/CUSTOMER SERVICE: Dr. Carlin Hoskins. DISPOSITION: Discharged home. FINAL DIAGNOSES: Unstable angina, coronary artery disease, hypertension, atrial fibrillation, hepati tis C, dyslipidemia. DISCHARGE MEDICATIONS: Temazepam 15 mg at bedtime p.r.n., Crestor 10 mg a day, Protonix 40 mg a day, metoprolol 25 mg at bedtime, fish oil 1200 mg at bedtime, Zetia 10 mg at bedtime, digoxin 0.25 mg at bedtime, Plavix 75 mg at bedtime, aspirin 81 mg at bedtime. ALLERGIES: AGGRENOX, REMERON, AMBIEN, HYDROCODONE and TRAMADOL. CODE STATUS: FULL. PENDING AT THE TIME OF DISCHARGE: Nothing. HOSPITAL COURSE: The patient was admitted to [facility] through [facility]. He has unknown onset of chest pain, heavy squeezing sensation radiating to his arms, upp er jaw. He had another episode after this one resolved, associated with nausea and diaphoresis. His EKG showed no new ST-T changes. Troponin was elevated at 0.46. He was admitted for further evaluat ion. Troponins were 0.046, 0.071, 0.073. Comp metabolic profile unremarkable except for glucose 207 , sodium 134. INR 1.1. Initial white count 26.2; followup 25.0; today it is 10.0; hemoglobin 14.9, 14.4 and 14.4; platelet count 300,000 plus or minus. Echocardiogram revealed an EF of 50-55%. The zahra hood was seen day of admission by Dr. Domenico Rowland of Cardiology. On 04/04/2017, he was doing well. No chest pain. Cardiology recommended cardiac catheterization on Thursday. The patient underwent card iac catheterization with multivessel disease, had PCI x2 placed by Dr. Carlin Hoskins. Today, the zahra hood is doing well, no pain and is ready to go home. His vital signs are stable. Cardiorespirator y exam is unremarkable. He is being discharged for followup with Dr. Fairchild in 1 week. Follow u p with Dr. Hoskins per his desire. Patient would be discharged today when approved by Dr. Hoskins.
[2017-04-07 12:18] VITALS: BP 145/76; TEMP 98.2
--- NOTE | 2017-04-07 23:24 | CCL ---
PROCEDURE: 1. Left heart catheterization. 2. Left coronary arteriography. 3. Left ventriculography. 4. Bypass graft angiography. 5. MARQUEZ injection. 6. Intracoronary nitroglycerin and drug eluting stent placement in the right coronary artery. INDICATION: Acute coronary syndrome. Patient was brought to cardiac catheterization lab and the right groin was prepped and draped in usual fashion. 1% lidocaine was infiltrated. A 6 [place] sheath was placed into the right femoral artery and heparin 3000 units given. A 6 [place] angulated pigtail was inserted and pressures were obtained. Left ventriculogram was performed using 30 mL of contrast at 12 mL per second in an HERNANDEZ 30 degree projection. The pigtail did pull back into the aorta; however, enough delineation of left ventricular function and could be obtained and this was not repeated. Pigtail was removed. A 6 [place] Ale left 4 did not engage the left main well. A 6 [place] Ale left 5 was used. A 6 [place] Ale right 4 used for right coronary arteriography, as well as opacified the left radial to the diagonal graft. This was removed and a 6 [place]ian MICHELLE catheter used for MICHELLE injection. Angiomax bolus and drip were started. A 6 [place] Ale right 4 guide catheter along with the floppy choice wire were used. The wire was advanced to the distal right coronary artery. The lesion distal to the stent was predilated with an Emerge 3.0 x 20 mm balloon. Nitroglycerin 200 mcg was given. Synergy 3.0 x 20 mm was then inserted. This was positioned and deployed. Synergy 3.5 x 32 mm stent was then positioned overlapping the Synergy 3.0. This was then deployed. There continued to be some narrowing and a portion of the in-stent restenosis. This was dilated with Emerge NC 4.0 x 12 mm balloon. Also, portion of the 3.0 stent was postdilated. The guide catheter , balloon and wire were removed. Sheaths were sutured in place. The patient was transferred to the ICU. Angiomax was discontinued. RESULTS OF PRESSURES: Aorta 99/39, mean 63. Left ventricle 108/1. LEFT VENTRICULOGRAM: There was mild anterior hypokinesis with ejection fraction of 50-55%. CORONARY ARTERIOGRAPHY: 1. The left main had a 20% stenosis. 2. The LAD was totally occluded proximally. 3. The circumflex continued to have good first obtuse marginal stent results. 4. The right coronary artery had a 70% mid RCA, in-stent restenosis. There was an 80% lesion in the mid RCA distal to the stents. BYPASS GRAFTS: 1. The MARQUEZ to the LAD was patent. 2. The left radial to the diagonal was patent. INTERVENTION RESULTS: The initial area of in-stent restenosis was reduced from 70-80%. The lesion distal to the stent was reduced from 80% to 0%. IMPRESSION: 1. Three-vessel coronary artery disease. 2. Two of two bypass grafts patent. 3. Mild left ventricular systolic dysfunction. 4. Successful drug-eluting stent placement in the mid to proximal RCA. MTDD
--- NOTE | 2017-04-08 07:27 | EKG ---
Test Reason : Blood Pressure : / mmHG Vent. Rate : 064 BPM Atrial Rate : 064 BPM P-R Int : 206 ms QRS Dur : 086 ms QT Int : 402 ms P-R-T Axes : 048 -03 027 degrees QTc Int : 414 ms Normal sinus rhythm Normal ECG When compared with ECG of 06-APR-2017 09:46, No significant change was found Confirmed by DR. Oswaldo HAIDER ([id number]) on 04/08/2017 7:26:44 AM Referred By: BLANCA Confirmed By:DR. Oswaldo HAIDER
== END 2017-04-07 12:15 | disposition home or self-care (01) | DRG 247 ==
LOC: ERS 14:26 → OBSVTOIN 15:50 → 2SW 15:50 → 2NO 04-04 14:00
PROVIDERS: ADMIT Internal Medicine; ATTEND Internal Medicine
PROC: 027035Z Dilation of Coronary Artery, One Artery with Two Drug-eluting Intraluminal Devices, Percutaneous Approach (ICD-10-PCS; principal; 2017-04-06)
PROC: 4A023N7 Measurement of Cardiac Sampling and Pressure, Left Heart, Percutaneous Approach (ICD-10-PCS; 2017-04-06)
PROC: B2181ZZ Fluoroscopy of Left Internal Mammary Bypass Graft using Low Osmolar Contrast (ICD-10-PCS; 2017-04-06)
PROC: B2121ZZ Fluoroscopy of Single Coronary Artery Bypass Graft using Low Osmolar Contrast (ICD-10-PCS; 2017-04-06)
PROC: B2111ZZ Fluoroscopy of Multiple Coronary Arteries using Low Osmolar Contrast (ICD-10-PCS; 2017-04-06)
PROC: B2151ZZ Fluoroscopy of Left Heart using Low Osmolar Contrast (ICD-10-PCS; 2017-04-06)
DX: I25.110 Atherosclerotic heart disease of native coronary artery with unstable angina pectoris (principal); I48.0 Paroxysmal atrial fibrillation; E78.5 Hyperlipidemia, unspecified; I10 Essential (primary) hypertension; B18.2 Chronic viral hepatitis C; M1A.9XX0 Chronic gout, unspecified, without tophus (tophi); Z86.73 Personal history of transient ischemic attack (TIA), and cerebral infarction without residual deficits; Z87.891 Personal history of nicotine dependence; Z95.1 Presence of aortocoronary bypass graft; Z95.5 Presence of coronary angioplasty implant and graft; Z88.5 Allergy status to narcotic agent; Z88.8 Allergy status to other drugs, medicaments and biological substances; Z79.02 Long term (current) use of antithrombotics/antiplatelets; Z79.82 Long term (current) use of aspirin; Z79.899 Other long term (current) drug therapy
CPT/HCPCS: 36415; 71045; 80048; 80053; 80061; 81003; 82550; 82553; 83690; 83880; 84484; 85025; 85347; 85610; 85730; 92928; 93005; 93010; 93306; 93455; 93798; 94760; 99152; 99153; C1725; C1769; C1874; C1887; C9600; J0583; J1644; J1650; J2001; J2250; J3010

== ENCOUNTER 2017-04-20 11:36 | Observation (INO) | payer BC, MEDICARE ==
[2017-04-20 12:09] LABS: #Basophils 0.1 thou/uL (0.0-0.2); #Eosinphils 0.3 thou/uL (0.0-0.7); #Lymphocytes 2.3 thou/uL (1.20-3.40); #Monocytes 0.8 thou/uL (0.11-0.59); #Neutrophils 3.6 thou/uL (1.40-6.50); %Basophils 0.9 % (0.0-1.0); %Eosinophils 4.2 % (0.0-10.0); %Lymphocytes 32.8 % (21.0-51.0); %Monocytes 11.3 % (0.0-10.0); %Neutrophils 50.8 % (42.0-75.0); Hemoglobin 14.4 g/dL (14.0-18.0); Mean Corpuscular HGB CONC 33.6 g/dL (32.0-36.0); Mean Corpuscular Hemoglobin 32.5 pg (27.0-31.0); Mean Corpuscular Volume 96.9 fl (80.0-94.0); Mean Platelet Volume 6.8 fL (7.4-10.4); Platelet Count 259 thou/uL (130-400); RBC Distribution Width 11.9 % (11.5-14.5); Red Blood Cell (RBC) Count 4.41 mill/uL (4.70-6.10); White Blood Cell (WBC) Count 7.1 thou/uL (4.8-10.8)
[2017-04-20 12:30] LABS: CKMB 1.3 ng/mL (0-6.6); Troponin I 0.027 ng/mL (< 0.028)
[2017-04-20 12:32] LABS: ALT (SGPT) 20 U/L (8-55); AST (SGOT) 19 U/L (5-34); Albumin 3.9 g/dL (3.4-4.8); Alkaline Phosphatase 70 U/L (40-150); Anion Gap 11 mmol/L (10-20); BUN (Urea Nitrogen) 9 mg/dL (8.4-25.7); Bilirubin, Total 0.4 mg/dL (0.2-1.2); CK (CPK) 51 U/L (30-200); Calc. Creatinine Clearance 0 mL/min (70-130); Calcium 9.3 mg/dL (7.8-10.44); Carbon Dioxide 26 mmol/L (23-31); Chloride 103 mmol/L (98-107); Estimated GFR-MDRD 79; Globulin 3.4 g/dL (2.4-3.5); Glucose 137 mg/dL (80-115); Potassium 4.2 mmol/L (3.5-5.1); Protein, Total 7.3 g/dL (5.8-8.1); Sodium 136 mmol/L (136-145)
--- NOTE | 2017-04-20 13:03 | RAD ---
PORTABLE CHEST ONE VIEW: 04/20/2017 12:25 p.m. HISTORY: Chest pain. COMPARISON: 04/03/2017 FINDINGS: Changes of median sternotomy are again seen. A left-sided pacemaker device remains in place. The he art size is normal. The lungs are well expanded without focal areas of consolidation, pneumothorax, or pleural effusions. A hiatal hernia is present. IMPRESSION: 1. No acute process. 2. Hiatal hernia. POS: [facility]
[2017-04-20 15:56] LABS: Troponin I 0.027 ng/mL (< 0.028)
[2017-04-20] MEDS ORDERED: Acetaminophen 325 MG TAB PO PRN ×2 (18:01→18:03)
[2017-04-20] MEDS ORDERED: Temazepam 15 MG CAP PO PRN (18:04)
[2017-04-20 18:22] VITALS: BMI 30.1
[2017-04-20 18:46] LABS: Troponin I 0.024 ng/mL (< 0.028)
--- NOTE | 2017-04-20 20:21 | HP ---
DATE OF ADMISSION: 04/20/2017 ADMITTING PHYSICIAN: Dr. Ar Angel. PRIMARY CARE PHYSICIAN: Dr. Fairchild. CHIEF COMPLAINT: Chest pressure. HISTORY OF PRESENT ILLNESS: The patient is a pleasant 67-year-old who was discharged 2 weeks ago. A t that time, the patient had stents placed in his RCA by Dr. Carlin Hoskins. The patient and his wi fe report that approximately 5 or 6 days ago, he began to experience more dyspnea on exertion. Today , he complained about chest pressure to his as well as increased fatigue. She is an RN and brou ght him to the ED to be evaluated. The patient also reports that he did have a feeling of nausea tod ay, although he does have a history of gastroesophageal reflux disease, also positive diaphoresis. D enies heart palpitations, loss of consciousness, vomiting, diarrhea, constipation. REVIEW OF SYSTEMS: The following complete review of systems was negative, unless otherwise mentioned in the HPI or below: Constitutional: Weight loss or gain, sense of well-being, ability to conduct usual activities, exercise tolerance. Skin/Breast: Rash, itching, changes in hair growth or loss, n ail changes, breast lumps, tenderness, swelling, nipple discharge. Eyes: Vision, double vision, tea ring, blind spots, pain. ENT/Mouth: Headaches (location, time of onset, duration, precipitating fac tors), vertigo, lightheadedness, injury. Vision, double vision, tearing, blind spots, pain, nose blee ding, colds, obstruction, discharge, dental difficulties, gingival bleeding, dentures, neck stiffness , pain, tenderness, masses in thyroid or other areas. Cardiovascular: Precordial pain, substernal d istress, palpitations, syncope, dyspnea on exertion, orthopnea, nocturnal paroxysmal dyspnea, edema, cyanosis, hypertension, heart murmurs, varicosities, phlebitis, claudication. Respiratory: Pain, sh ortness of breath, wheezing, stridor, cough, hemoptysis, fever or night sweats. Gastrointestinal: P oor appetite, dysphagia, indigestion, abdominal pain, heartburn, eructation, nausea, vomiting, hemate mesis, jaundice, constipation, or diarrhea, abnormal stools (millicent-colored, tarry, bloody, greasy, fou l smelling), flatulence, hemorrhoids, recent changes in bowel habits. Genitourinary: Urgency, frequ ency, dysuria, nocturia, hematuria, polyuria, oliguria, unusual (or change in) color of urine, stones , hesitancy, change in size of stream, dribbling, acute retention or incontinence, libido, potency. Musculoskeletal: Pain, swelling, redness or heat of muscles or joints, limitation, of motion, muscul ar weakness, atrophy, cramps. Neurologic/Psychiatric: Convulsions, paralyses, tremor, incoordinatio n, parasthesias, difficulties with memory of speech, sensory or motor disturbances, or muscular coord ination (ataxia, tremor), emotional problems, anxiety, depression, previous psychiatric care, unusual perceptions, hallucinations. Allergy/Immunologic: Skin rash, anemia, bleeding tendency, polydipsia, polyuria, intolerance to heat or cold. PAST MEDICAL HISTORY: Significant for coronary artery disease, CVA x2, dyslipidemia, hypertension, a trial fibrillation, hepatitis C, and GERD. PAST SURGICAL HISTORY: Significant for CABG x2 performed in 1998, pacemaker placement, PCI with sten ts, bilateral shoulder surgery. PSYCHIATRIC HISTORY: No previous psychiatric history. SOCIAL HISTORY: Denies drugs. Former drinker, smoked tobacco 20 years ago. FAMILY HISTORY: Reviewed and noncontributory to this present case. DRUG ALLERGIES: AGGRENOX, AMBIEN, REMERON. HOME MEDICATIONS: Include aspirin 325 mg every day, Protonix 40 mg every day, metoprolol 25 mg every day, digoxin 125 mcg every day, Crestor 10 mg every day, Zetia 10 mg daily, Plavix 75 mg every day. PHYSICAL EXAMINATION: VITAL SIGNS: Blood pressure 153/79, pulse 62, respirations 18, temperature 98.1, pain 0, oxygen 95% on room air. GENERAL: He is a pleasant gentleman, nontoxic appearing. HEAD: Normocephalic, atraumatic. EYES: PERRL. Extraocular muscles intact. ENT: Ear exam normal. Nose exam normal. No bleeding from nares. NECK: Trachea is midline. No bruits. Supple. Full range of motion. CHEST: No wheezing, no rhonchi, no rales. Clear to auscultation bilaterally. CARDIOVASCULAR: Normal S1, normal S2. No murmurs, regurgitations or gallops. ABDOMEN: Nontender, nondistended. Positive bowel sounds in all 4 quadrants. EXTREMITIES: No clubbing, no cyanosis nor edema. Full range of motion. NEUROLOGIC: Alert and oriented x3. Cranial nerves II-XII grossly intact. SKIN: Warm, dry, normal in color. LABORATORY DATA AND IMAGES: EKG performed in the ER shows a paced rhythm, atrial capture at a rate o f 62. Chest x-ray performed shows no acute process. There is a hiatal hernia present. Left-sided p acemaker device is in place. The heart size is normal. CBC shows a white count of 7.1, hemoglobin 1 4.4, hematocrit 42.8, platelets 259. A D-dimer performed is 0.45. Chem-7 shows sodium of 136, potas sium 4.2, chloride 103, carbon dioxide 26, BUN 9, creatinine 0.95, glucose 137, AST 19, ALT 20, creat ine kinase of 51, CK-MB of 1.3, troponin I first set 0.027, second set 0.027. BNP of 63.6, albumin 3 .9. ASSESSMENT AND PLAN: 1. Atypical chest pain. 2. History of coronary artery disease. 3. Hypertension. 4. History of atrial fibrillation. PLAN: The patient will be admitted to the telemetry unit observation. Patient is anticoagulated at this time. We will draw a third set of enzymes and monitor him overnight. At this time, I do not se e a need to involve the information systems specialist service. If the patient deteriorates, we will consult them and ask for further investigation.
[2017-04-20] MEDS ORDERED: Digoxin 0.25 MG TAB PO SCH (21:00)
[2017-04-20] MEDS ORDERED: Clopidogrel Bisulfate 75 MG TAB PO SCH (21:00)
[2017-04-21 05:24] LABS: Anion Gap 10 mmol/L (10-20); BUN (Urea Nitrogen) 8 mg/dL (8.4-25.7); Calc. Creatinine Clearance 121 mL/min (70-130); Calcium 8.9 mg/dL (7.8-10.44); Carbon Dioxide 26 mmol/L (23-31); Chloride 104 mmol/L (98-107); Estimated GFR-MDRD Greater than 90; Glucose 116 mg/dL (80-115); Potassium 3.9 mmol/L (3.5-5.1); Sodium 136 mmol/L (136-145)
[2017-04-21 08:14] VITALS: BP 139/63; TEMP 97.8
--- NOTE | 2017-04-21 11:49 | DIS ---
DATE OF ADMISSION: 04/20/2017 DATE OF DISCHARGE: 04/21/2017 PRIMARY DISCHARGE DIAGNOSES: 1. Atypical chest pain. 2. History of coronary artery disease. HOSPITAL COURSE: The patient was admitted secondary to complaints of increasing shortness of breath and fatigue. The patient had cardiac enzymes performed, which were negative x3. The patient recentl y had a PCI with stenting. It was felt that the patient was not experiencing an acute coronary syndr ome. The patient was discharged home and he is to follow up with his environmental services coordinator in early May. H e is to follow up with his PCP within 7 days. CONSULTATIONS: None. PROCEDURES: None. DISCHARGE DISPOSITION: To home. DISCHARGE DIET: Heart healthy. DISCHARGE ACTIVITY: As tolerated. DISCHARGE MEDICATIONS: The patient is to resume his home medication regimen. PHYSICAL EXAMINATION: On discharge, GENERAL: In no acute distress. HEAD: Normocephalic, atraumatic. EYES: PERRL. Extraocular muscles intact. CARDIAC: Regular rate and rhythm, no murmurs, regurge, or gallops. LUNGS: Clear to auscultation. ABDOMEN: Nontender, nondistended. EXTREMITIES: No clubbing, cyanosis, or edema. FOLLOWUP: The patient is to follow up as indicated above with the appropriate services.
== END 2017-04-21 10:10 | disposition home or self-care (01) ==
LOC: ERS 11:36 → 2SW 15:07
PROVIDERS: ADMIT Internal Medicine Addiction Medicine; ATTEND Internal Medicine Addiction Medicine
DX: R07.89 Other chest pain (principal); I25.10 Atherosclerotic heart disease of native coronary artery without angina pectoris; I10 Essential (primary) hypertension; I48.91 Unspecified atrial fibrillation; E78.5 Hyperlipidemia, unspecified; K21.9 Gastro-esophageal reflux disease without esophagitis; F17.200 Nicotine dependence, unspecified, uncomplicated; Z88.5 Allergy status to narcotic agent; Z79.82 Long term (current) use of aspirin; Z88.8 Allergy status to other drugs, medicaments and biological substances; Z79.899 Other long term (current) drug therapy; Z95.1 Presence of aortocoronary bypass graft; Z98.890 Other specified postprocedural states; Z86.19 Personal history of other infectious and parasitic diseases; Z86.73 Personal history of transient ischemic attack (TIA), and cerebral infarction without residual deficits
CPT/HCPCS: 36415; 71045; 80048; 80053; 82550; 82553; 83880; 84484; 85025; 85379; 93005; 94760; G0378

== ENCOUNTER 2017-10-26 09:46 | Outpatient (CLI) | payer BC, MEDICARE ==
--- NOTE | 2017-10-26 12:35 | RAD ---
THREE VIEWS LUMBAR SPINE: DATE: 10/26/17. HISTORY: Chronic back pain. COMPARISON: None available. FINDINGS: There are 5 [id number] lumbar-type vertebral bodies. The vertebral body heights are within norm al limits. No fracture or subluxation is seen. Scattered osteophytes are seen anteriorly at multipl e levels. Mild facet degenerative changes are seen in the lower lumbar spine. Vascular calcification s are seen in the abdominal aorta. IMPRESSION: Mild degenerative changes of the lumbar spine without evidence of a fracture or subluxation. POS: [facility]
== END 2017-10-26 09:47 | disposition home or self-care (01) ==
LOC: SCSRAD 09:46
PROVIDERS: ATTEND Family Medicine
DX: M54.5 Low back pain (principal); M47.896 Other spondylosis, lumbar region
CPT/HCPCS: 72100

== ENCOUNTER 2018-07-21 13:23 | Outpatient (CLI) | payer BC, MEDICARE ==
--- NOTE | 2018-07-21 14:31 | CT ---
CT LUMBAR SPINE WITHOUT CONTRAST: 07/21/18 Multiple axial tomograms obtained through the lumbar spine with multiplanar reconstruction. INDICATION: Back pain. Lumbar radiculopathy with radiation to the right lower extremity. FINDINGS: Lumbar vertebrae maintain height and alignment. There are degenerative changes present with osteophyt es from all lumbar vertebrae. The disc spaces are relatively well preserved. At L1-2, mild disc bulge is present. Facet hypertrophy. Mild central canal stenosis. At L2-3, mild disc bulge. Facet hypertrophy. Mild central canal stenosis. At L3-4, broad based bulge. Facet hypertrophy. Mild central canal stenosis. At L4-5, diffuse disc bulge. Facet hypertrophy. Evidence of old laminectomy defect on the right. Mild to moderate central canal stenosis at this level. Old laminectomy defect on the right noted at this level. At L5-S1, mild disc bulge which is asymmetric to the left. There is left foraminal encroachment conta cting the exiting left L5 nerve root. Facet hypertrophy is prominent. Mild central canal stenosis. IMPRESSION: 1. Asymmetric disc bulge into the left foramina at L5-S1 contacts and mildly displaces the exiti ng left L5 nerve root. Correlate regarding symptoms to this level. 2. Mild disc bulge and central canal stenosis at the other levels as described above. POS: [facility]
== END 2018-07-21 13:24 | disposition home or self-care (01) ==
LOC: BICCT 13:23
PROVIDERS: ATTEND Family Medicine
DX: M51.16 Intervertebral disc disorders with radiculopathy, lumbar region (principal); M51.17 Intervertebral disc disorders with radiculopathy, lumbosacral region; M48.061 Spinal stenosis, lumbar region without neurogenic claudication; M48.07 Spinal stenosis, lumbosacral region
CPT/HCPCS: 72131

== ENCOUNTER 2018-10-12 09:40 | Outpatient (CLI) | payer BC, MEDICARE ==
--- NOTE | 2018-10-12 12:02 | ULT ---
HEPATIC ULTRASOUND WITH DOPPLER: Date: 10/12/18 HISTORY: Hepatitis C. FINDINGS: The liver demonstrates homogeneous echotexture without focal mass or intrahepatic ductal dilatation. The spleen measures 10.0 cm in length and is normal. No gallstones, gallbladder wall thickening, or p ericholecystic fluid seen. The common duct measures 4.0 mm in diameter. The visualized portions of th e pancreas are unremarkable. No free fluid is seen in the right upper quadrant. There is normal and s pectral waveforms in the hepatic, splenic, and portal vasculature. IMPRESSION: No evidence of hepatic mass. POS: [facility]
== END 2018-10-12 09:41 | disposition home or self-care (01) ==
LOC: SCSULT 09:40
PROVIDERS: ATTEND Internal Medicine Gastroenterology
DX: B18.2 Chronic viral hepatitis C (principal); Z86.010 Personal history of colon polyps
CPT/HCPCS: 76705

== ENCOUNTER 2018-11-22 07:00 | Day surgery (SDC) | payer BC, MEDICARE ==
[2018-11-19 10:22] VITALS: BMI 30.8
[~2018-11-22 07:00] MED LIST: FLU VACC TS2019-20(65YR UP)/PF 180 MCG/0.5 ML SYRINGE IM ONE
[2018-11-22 08:00] VITALS: BP 140/76; TEMP 97.6
--- NOTE | 2018-11-22 11:01 | CT ---
POST MYELOGRAM CT LUMBAR SPINE: INDICATIONS: Low back pain. Lumbar radiculopathy. COMPARISON: CT lumbar spine from 07/21/2018. TECHNIQUE: Multiple axial tomograms obtained through the lumbar spine following a myelogram procedure with multi planar reconstruction. FINDINGS: The lumbar vertebrae maintain height and alignment. Disk spaces are maintained with mild loss of disk space at T12-L1 and L1-L2. At the L5-S1 disk level there is mild bulge centrally, abutting the thecal sac. Asymmetric bulge into the left foramina is noted, which contacts the exiting left L5 nerve root within the foramina. No ce ntral canal stenosis. At L4-L5 mild disk bulge abuts and mildly flattens the thecal sac. No significant central canal or fo raminal stenosis. At L3-L4 mild disk bulge flattens the anterior thecal sac. No significant central canal or foraminal stenosis. At L2-L3 mild diffuse disk bulge abuts and mildly flattens the thecal sac. No significant central can al or foraminal stenosis. At L1-L2 mild disk bulge. No central canal or foraminal stenosis. IMPRESSION: Asymmetric disk bulge into the foramina on the left at L5-S1 appears to contact the exiting left L5 n erve root. No significant central canal stenosis. Mild disk bulge at the other levels as described. POS: MICHELLE
--- NOTE | 2018-11-22 11:05 | RAD ---
LUMBAR MYELOGRAM: INDICATIONS: Low back pain. Lumbar radiculopathy. TECHNIQUE: Approximately 15 mL of Isovue-M 200 was injected into the spinal canal via a 22 gauge spinal needle a t the L2 level, under fluoroscopic observation. See post myelogram CT lumbar spine for further characterization of the lumbar findings. PROCEDURE NOTE: The patient was placed prone on the fluoroscopy table. The lower back was prepped and draped in a logan rile manner. Initial puncture performed to midline at L3, under local anesthesia, with a 22 g auge needle. Spinal fluid was unable to be obtained at this level. A puncture was then made using a paramidline puncture on the left at L2. From this position clear spi nal fluid was recovered and 15 mL of Isovue-M 200 was then injected into the thecal sac under fluoros copic observation. Normal thecal sac opacification was noted. The needle was removed and a sterile d ressing was applied. The patient tolerated the procedure well and there were no problems or complica tions. The patient was sent for a post myelogram CT of the lumbar spine. POS: [facility]
== END 2018-11-22 10:05 | disposition home or self-care (01) ==
LOC: RAD 07:00
PROVIDERS: ATTEND Neurological Surgery
DX: M54.16 Radiculopathy, lumbar region (principal); I25.10 Atherosclerotic heart disease of native coronary artery without angina pectoris; K21.9 Gastro-esophageal reflux disease without esophagitis; E78.5 Hyperlipidemia, unspecified; I10 Essential (primary) hypertension; G47.33 Obstructive sleep apnea (adult) (pediatric); Z79.02 Long term (current) use of antithrombotics/antiplatelets; Z79.82 Long term (current) use of aspirin; Z79.899 Other long term (current) drug therapy; Z88.5 Allergy status to narcotic agent; Z88.8 Allergy status to other drugs, medicaments and biological substances; Z95.0 Presence of cardiac pacemaker; Z95.1 Presence of aortocoronary bypass graft; Z95.5 Presence of coronary angioplasty implant and graft
CPT/HCPCS: 62304; 72132

== ENCOUNTER 2019-03-21 15:44 | Outpatient (CLI) | payer BC, MEDICARE ==
--- NOTE | 2019-03-21 16:37 | RAD ---
Exam:Left hip 2 views HISTORY: Pain. COMPARISON: None FINDINGS: Contour of the femoral head is maintained. Hip joint spaces preserved. No fracture. Visuali zed bony pelvis and sacrum are unremarkable. IMPRESSION: No significant degenerative change. No fracture.
== END 2019-03-21 15:45 | disposition home or self-care (01) ==
LOC: SCSRAD 15:44
PROVIDERS: ATTEND Family Medicine
DX: M25.552 Pain in left hip (principal)

== ENCOUNTER 2019-04-11 08:30 | Outpatient (CLI) | payer BC, MEDICARE ==
--- NOTE | 2019-04-11 09:42 | ULT ---
Hepatic ultrasound with duplex evaluation INDICATION: Hepatitis TECHNIQUE: Grayscale, color Doppler and spectral Doppler images were obtained of the liver, gallbladd er, common bile duct, pancreas, right kidney and spleen. COMPARISON: Prior exam dated October 12, 2018 FINDINGS: Liver: No focal hepatic lesion is evident. The liver measured 18.3 cm in length. Hepatic vasculature: Left hepatic vein: Appropriate flow. Middle hepatic vein: Appropriate flow. Right hepatic vein: Appropriate flow. Hepatic artery: Hepatopedal flow. Main portal vein: Hepatopedal flow. Right portal vein: Hepatopedal flow. Left portal vein: Hepatopedal flow. Splenic artery: Appropriate flow. Splenic vein: Hepatopedal flow. Aorta: Appropriate flow. The mid abdominal aorta measured 1.5 cm. The distal abdominal aorta measured 1.4 cm. The proximal abdominal aorta was obscured. IVC: Appropriate flow. Gallbladder: Normal appearing. Common bile duct: 3.0 mm. Pancreas: Largely obscured. Right kidney: 9.5 x 3.9 x 5.4 cm. No hydronephrosis Spleen: The spleen measured 9.0cm in length. IMPRESSION: 1. No focal hepatic lesion. Appropriate hepatopedal flow.
== END 2019-04-11 08:31 | disposition home or self-care (01) ==
LOC: SCSULT 08:30
PROVIDERS: ATTEND Physician Assistant Medical
DX: B18.2 Chronic viral hepatitis C (principal)
CPT/HCPCS: 76705

== ENCOUNTER 2020-01-17 16:57 | Outpatient (CLI) | payer BC, MEDICARE ==
--- NOTE | 2020-01-17 17:56 | RAD ---
PA AND LATERAL CHEST: 01/17/20 HISTORY: Shortness of breath. COMPARISON: 01/30/04 exam. Heart size within normal limits. There are postop sternotomy changes seen. Pacemaker is present. Ther e is some increased interstitial markings favored to be more related to a chronic process. No definit e infiltrative change although it is difficult to exclude some subtle infiltrate. I believe that thes e findings are just chronic in nature. IMPRESSION: Chronic lung change. POS: LATISHA
== END 2020-01-17 16:58 | disposition home or self-care (01) ==
LOC: SCSRAD 16:57
PROVIDERS: ATTEND Family Medicine
DX: R06.02 Shortness of breath (principal)
CPT/HCPCS: 71046

== ENCOUNTER 2020-04-11 12:36 | Outpatient (CLI) | payer BC, MEDICARE ==
--- NOTE | 2020-04-11 13:21 | RAD ---
PA AND LATERAL CHEST: Date: 04/11/2020 COMPARISON: 01/17/2020 exam. HISTORY: Dyspnea. FINDINGS: Heart size is upper limits. Postop sternotomy change and pacemaker are present. The lungs show some c hronic change. A hiatal hernia is seen. IMPRESSION: Chronic lung change. Stable chest. POS: LATISHA
== END 2020-04-11 12:37 | disposition home or self-care (01) ==
LOC: BICRAD 12:36
PROVIDERS: ATTEND Internal Medicine Critical Care Medicine
DX: R06.00 Dyspnea, unspecified (principal)
CPT/HCPCS: 71046

== ENCOUNTER 2020-07-02 12:18 | Outpatient (CLI) | payer BC, MEDICARE | END 2020-07-02 12:19 | disposition home or self-care (01) | LOC: BICCT 12:18 | PROVIDERS: ATTEND Internal Medicine Critical Care Medicine | DX: J84.9 Interstitial pulmonary disease, unspecified (principal); K44.9 Diaphragmatic hernia without obstruction or gangrene | CPT/HCPCS: 71250 ==

== ENCOUNTER → 2020-08-29 | Day surgery (SDC) | payer BC, MEDICARE | LOC: ENDO/OP 07:46 | PROVIDERS: ATTEND Internal Medicine Gastroenterology | DX: K44.9 Diaphragmatic hernia without obstruction or gangrene (principal); K21.9 Gastro-esophageal reflux disease without esophagitis; F10.11 Alcohol abuse, in remission; I48.91 Unspecified atrial fibrillation; I25.10 Atherosclerotic heart disease of native coronary artery without angina pectoris; I25.2 Old myocardial infarction; I10 Essential (primary) hypertension; G47.30 Sleep apnea, unspecified; Z86.010 Personal history of colon polyps; Z86.73 Personal history of transient ischemic attack (TIA), and cerebral infarction without residual deficits; Z87.891 Personal history of nicotine dependence; Z79.01 Long term (current) use of anticoagulants; Z79.82 Long term (current) use of aspirin; Z79.899 Other long term (current) drug therapy; Z88.5 Allergy status to narcotic agent; Z88.8 Allergy status to other drugs, medicaments and biological substances; Z95.1 Presence of aortocoronary bypass graft; Z95.0 Presence of cardiac pacemaker; Z95.5 Presence of coronary angioplasty implant and graft | CPT/HCPCS: 91010; Q9961 ==

== ENCOUNTER 2020-11-09 10:48 | Outpatient (CLI) | payer BC, MEDICARE ==
[2020-11-09 12:29] LABS: Hemoglobin 14.6 g/dL (13.5-17.5); Mean Corpuscular HGB CONC 34.4 g/dL (32.0-36.0); Mean Corpuscular Hemoglobin 31.7 pg (27.0-33.0); Mean Platelet Volume 9.5 fl (7.4-10.4); Platelet Count 304 10x3/uL (150-450); RBC Distribution Width 12.4 % (11.5-14.5); Red Blood Cell (RBC) Count 4.61 10x6/uL (4.32-5.72); White Blood Cell (WBC) Count 10.8 10x3/uL (3.5-10.5)
[2020-11-09 12:38] LABS: PTT 27.2 sec (22.0-33.0); Prothrombin Time 11.2 sec (9.5-12.1)
[2020-11-09 13:56] LABS: Anion Gap 15 mmol/L (10-20); BUN (Urea Nitrogen) 10 mg/dL (8.4-25.7); Calc. Creatinine Clearance 0 mL/min (70-130); Calcium 9.6 mg/dL (7.8-10.44); Carbon Dioxide 22 mmol/L (23-31); Chloride 102 mmol/L (98-107); Glucose 227 mg/dL (80-115); Potassium 4.2 mmol/L (3.5-5.1); Sodium 135 mmol/L (136-145)
[2020-11-10 00:53] LABS: SARS-CoV-2 PCR by NAA Not Detected (NotDetected)
== END 2020-11-09 10:49 | disposition home or self-care (01) ==
LOC: LABBT 10:48
PROVIDERS: ATTEND Internal Medicine Cardiovascular Disease
DX: Z01.812 Encounter for preprocedural laboratory examination (principal); I48.91 Unspecified atrial fibrillation; Z20.822 Contact with and (suspected) exposure to COVID-19
CPT/HCPCS: 80048; 85027; 85610; 85730; U0003; U0005

== ENCOUNTER 2020-11-14 05:52 | Day surgery (SDC) | payer BC, MEDICARE ==
[2020-11-13 10:49] VITALS: BMI 32.3
[2020-11-14] MEDS ORDERED: Glycopyrrolate 0.2 MG/ML 5 ML SYRINGE ONE (07:57)
[2020-11-14] MEDS ORDERED: Ondansetron PF 4 MG/2 ML Vial ONE (07:57)
[2020-11-14] MEDS ORDERED: Rocuronium Bromide 10 MG/ML (10ML VIAL) ONE (07:57)
[2020-11-14] MEDS ORDERED: Dexamethasone 20 MG/5 ML VIAL ONE (07:57)
[2020-11-14] MEDS ORDERED: Lidocaine 1% PF 5 ML VIAL ONE (07:57)
[2020-11-14] MEDS ORDERED: PROPOFOL 200 MG/20 ML VIAL ONE (07:57)
== END 2020-11-14 15:35 | disposition home or self-care (01) ==
LOC: CCL 05:52
PROVIDERS: ATTEND Internal Medicine Cardiovascular Disease
PROC: 02K83ZZ Map Conduction Mechanism, Percutaneous Approach (ICD-10-PCS; principal; 2020-11-14)
PROC: B244ZZ3 Ultrasonography of Right Heart, Intravascular (ICD-10-PCS; principal; 2020-11-14)
PROC: 02583ZZ Destruction of Conduction Mechanism, Percutaneous Approach (ICD-10-PCS; principal; 2020-11-14)
PROC: 4A023FZ Measurement of Cardiac Rhythm, Percutaneous Approach (ICD-10-PCS; principal; 2020-11-14)
PROC: 4A0234Z Measurement of Cardiac Electrical Activity, Percutaneous Approach (ICD-10-PCS; principal; 2020-11-14)
DX: I48.0 Paroxysmal atrial fibrillation (principal); I48.3 Typical atrial flutter; I10 Essential (primary) hypertension; E78.5 Hyperlipidemia, unspecified; I25.2 Old myocardial infarction; K21.9 Gastro-esophageal reflux disease without esophagitis; G89.29 Other chronic pain; M54.9 Dorsalgia, unspecified; Z86.73 Personal history of transient ischemic attack (TIA), and cerebral infarction without residual deficits; Z87.891 Personal history of nicotine dependence; Z79.01 Long term (current) use of anticoagulants; Z79.82 Long term (current) use of aspirin; Z79.899 Other long term (current) drug therapy; Z88.5 Allergy status to narcotic agent; Z88.8 Allergy status to other drugs, medicaments and biological substances; Z95.0 Presence of cardiac pacemaker; Z95.1 Presence of aortocoronary bypass graft; Z95.5 Presence of coronary angioplasty implant and graft
CPT/HCPCS: 93005; J1100; J2405; J2704

== ENCOUNTER 2020-12-02 10:16 | Observation (INO) | payer BC, MEDICARE ==
[2020-12-02] MEDS ORDERED: Nitroglycerin 2% Ointment 1 INCH/1 GM Packet ONE (10:29)
[2020-12-02 10:47] LABS: #Eosinphils 0.4 thou/uL (0.0-0.7); #Lymphocytes 3.3 thou/uL (1.20-3.40); #Monocytes 1.1 thou/uL (0.11-0.59); #Neutrophils 5.9 thou/uL (1.40-6.50); %Basophils 0.4 % (0.0-1.0); %Eosinophils 3.4 % (0.0-10.0); %Lymphocytes 30.8 % (21.0-51.0); %Monocytes 10.3 % (0.0-10.0); %Neutrophils 55.1 % (42.0-75.0); Mean Corpuscular HGB CONC 34.1 g/dL (32.0-36.0); Mean Corpuscular Hemoglobin 32.4 pg (27.0-31.0); Mean Corpuscular Volume 95.1 fL (78.0-98.0); Mean Platelet Volume 7.2 fL (7.4-10.4); Platelet Count 265 thou/uL (130-400); RBC Distribution Width 11.4 % (11.5-14.5); Red Blood Cell (RBC) Count 4.32 mill/uL (4.70-6.10); White Blood Cell (WBC) Count 10.7 thou/uL (4.8-10.8)
[2020-12-02 11:09] LABS: ALT (SGPT) 21 U/L (8-55); AST (SGOT) 17 U/L (5-34); Albumin 3.8 g/dL (3.4-4.8); Alkaline Phosphatase 76 U/L (40-110); Anion Gap 11 mmol/L (10-20); BUN (Urea Nitrogen) 13 mg/dL (8.4-25.7); Bilirubin, Total 0.4 mg/dL (0.2-1.2); Calc. Creatinine Clearance 0 mL/min (70-130); Calcium 9.3 mg/dL (7.8-10.44); Carbon Dioxide 26 mmol/L (23-31); Chloride 98 mmol/L (98-107); Globulin 3.7 g/dL (2.4-3.5); Glucose 326 mg/dL (80-115); Lipase 14 U/L (8-78); Potassium 4.4 mmol/L (3.5-5.1); Protein, Total 7.5 g/dL (5.8-8.1); Sodium 131 mmol/L (136-145)
[2020-12-02] MEDS ORDERED: Acetaminophen 500 MG TAB ONE (11:13)
[2020-12-02] MEDS ORDERED: Acetaminophen 325 MG TAB PO PRN (12:03)
[2020-12-02] MEDS ORDERED: HumaLOG 300 UNITS/3 ML VIAL SC PRN (12:03)
[2020-12-02] MEDS ORDERED: Ondansetron ODT 4 MG TAB PO PRN (12:03)
[2020-12-02] MEDS ORDERED: Dextrose 5% in Water 1,000 ML IV PRN (12:03)
[2020-12-02] MEDS ORDERED: Ondansetron PF 4 MG/2 ML Vial IVP PRN (12:03)
[2020-12-02] MEDS ORDERED: Insulin Regular 300 UNITS/3 ML VIAL SC PRN (12:03)
[2020-12-02] MEDS ORDERED: Dextrose 50% Abboject 50 ML SYRINGE SLOW IVP PRN (12:03)
[2020-12-02 13:01] LABS: Hemoglobin A1c 8.7 % (4.0-6.0)
[2020-12-02 13:08] LABS: Magnesium 1.8 mg/dL (1.6-2.6)
[2020-12-02] MEDS ORDERED: Morphine 4 MG/ML VIAL SLOW IVP PRN (13:42)
[2020-12-02 13:50] LABS: Digoxin 0.57 ng/mL (0.8-2.0)
[2020-12-02 14:08] LABS: Troponin I 0.014 ng/mL (< 0.028)
[2020-12-02] MEDS ORDERED: FLU VACC QS2021-22(65YR UP)/PF 240 MCG/0.7 ML SYRINGE IM ONE (16:00)
[2020-12-02 16:57] LABS: INR-International Normal Ratio 1.1; PTT 30.8 sec (22.9-36.1); Prothrombin Time 14.2 sec (12.0-14.7)
[2020-12-02 17:13] LABS: Troponin I Less than 0.010 ng/mL (< 0.028)
[2020-12-02 20:12] LABS: Bacteria/HPF None Seen HPF (None Seen); Bilirubin Negative (Negative); Blood, Urine Negative (Negative); Clarity Clear (Clear); Glucose, Urine (Dipstick) Greater than 1000 mg/dL (Negative); Ketone, Urine Negative (Negative); Leukocyte Negative Leu/uL (Negative); Nitrite Negative (Negative); Protein, Urine (Dipstick) Negative (Neg-Trace); RBC/HPF 0-3 HPF (0-3); Squamous Epithelial None Seen HPF (0-3); WBC/HPF 0-3 HPF (0-3)
[2020-12-02 20:13] LABS: Urine Culture Reflex No No
[2020-12-02 20:22] LABS: SARS-CoV-2 PCR by NAA Not Detected (NotDetected)
[2020-12-02] MEDS ORDERED: Acetaminophen 500 MG TAB PO PRN (20:56)
[2020-12-02] MEDS ORDERED: diphenhydrAMINE 50 MG CAP PO SCH (21:00)
[2020-12-02] MEDS ORDERED: Ezetimibe 10 MG TAB PO SCH (21:00)
[2020-12-02] MEDS ORDERED: Aspirin Chewable 81 MG TAB PO SCH (21:00)
[2020-12-02] MEDS ORDERED: Rosuvastatin 10 MG TAB PO SCH (21:00)
[2020-12-02] MEDS ORDERED: diphenhydrAMINE 25 MG CAP PO SCH (21:00)
[2020-12-02] MEDS ORDERED: Fish Oil 1,000 MG CAP PO SCH ×2 (21:00)
[2020-12-02] MEDS ORDERED: Melatonin 3 MG TAB PO SCH ×2 (21:00)
[2020-12-02] MEDS ORDERED: Apixaban 5 MG TAB PO SCH (21:00)
[2020-12-03 07:14] LABS: #Eosinphils 0.4 thou/uL (0.0-0.7); #Lymphocytes 2.7 thou/uL (1.20-3.40); #Monocytes 0.8 thou/uL (0.11-0.59); #Neutrophils 4.5 thou/uL (1.40-6.50); %Basophils 0.6 % (0.0-1.0); %Eosinophils 4.5 % (0.0-10.0); %Lymphocytes 31.7 % (21.0-51.0); %Monocytes 9.4 % (0.0-10.0); %Neutrophils 53.9 % (42.0-75.0); Hemoglobin 14.3 g/dL (14.0-18.0); Mean Corpuscular HGB CONC 35.6 g/dL (32.0-36.0); Mean Corpuscular Hemoglobin 33.7 pg (27.0-31.0); Mean Corpuscular Volume 94.6 fL (78.0-98.0); Mean Platelet Volume 7.3 fL (7.4-10.4); Platelet Count 264 thou/uL (130-400); RBC Distribution Width 11.2 % (11.5-14.5); Red Blood Cell (RBC) Count 4.23 mill/uL (4.70-6.10); White Blood Cell (WBC) Count 8.4 thou/uL (4.8-10.8)
[2020-12-03 07:31] LABS: Anion Gap 13 mmol/L (10-20); BUN (Urea Nitrogen) 10 mg/dL (8.4-25.7); Calc. Creatinine Clearance 56 mL/min (70-130); Calcium 8.8 mg/dL (7.8-10.44); Carbon Dioxide 25 mmol/L (23-31); Cardiac Risk 3.1 (Less than 4.5); Chloride 102 mmol/L (98-107); Cholesterol 98 mg/dl (< 200 Desired); Glucose 195 mg/dL (80-115); HDL Cholesterol 32 mg/dL (>60 Neg Risk); LDL Cholesterol, Calculated 48 mg/dL; Potassium 4.4 mmol/L (3.5-5.1); Sodium 136 mmol/L (136-145); Triglycerides 88 mg/dL (Less than 150)
[2020-12-03] MEDS ORDERED: Amitriptyline HCl 25 MG TAB PO SCH (09:00)
[2020-12-03] MEDS ORDERED: Enoxaparin Sodium 100 MG/ML SYRINGE SC SCH (09:00)
[2020-12-03 09:34] VITALS: BMI 32.1
[2020-12-03] MEDS ORDERED: ADENOSINE 60 MG/20 ML VIAL ONE (10:27)
[2020-12-03 14:01] VITALS: BP 155/74; TEMP 97.8
[2020-12-03] MEDS ORDERED: Famotidine 20 MG TAB PO SCH (14:30)
== END 2020-12-03 16:20 | disposition home or self-care (01) ==
LOC: ERS 10:16 → 2SW 11:30
PROVIDERS: ADMIT Family Medicine; ATTEND Internal Medicine
DX: R07.89 Other chest pain (principal); E87.1 Hypo-osmolality and hyponatremia; I10 Essential (primary) hypertension; I25.10 Atherosclerotic heart disease of native coronary artery without angina pectoris; I08.3 Combined rheumatic disorders of mitral, aortic and tricuspid valves; K21.9 Gastro-esophageal reflux disease without esophagitis; E78.00 Pure hypercholesterolemia, unspecified; I48.0 Paroxysmal atrial fibrillation; E11.65 Type 2 diabetes mellitus with hyperglycemia; G47.00 Insomnia, unspecified; Z20.822 Contact with and (suspected) exposure to COVID-19; Z95.1 Presence of aortocoronary bypass graft; Z79.01 Long term (current) use of anticoagulants; Z79.84 Long term (current) use of oral hypoglycemic drugs; Z79.82 Long term (current) use of aspirin; Z79.890 Hormone replacement therapy; Z79.899 Other long term (current) drug therapy; Z88.5 Allergy status to narcotic agent; Z88.8 Allergy status to other drugs, medicaments and biological substances; Z95.810 Presence of automatic (implantable) cardiac defibrillator; Z86.73 Personal history of transient ischemic attack (TIA), and cerebral infarction without residual deficits; Z98.890 Other specified postprocedural states; Z87.891 Personal history of nicotine dependence
CPT/HCPCS: 36415; 36416; 71045; 78452; 80048; 80053; 80061; 80162; 81001; 83036; 83690; 83735; 83880; 84484; 85025; 85610; 85730; 93005; 93017; 93306; 96372; A9500; G0378; J0153; J1650; J1815; U0003; U0005

== ENCOUNTER 2021-01-10 12:36 | Outpatient (CLI) | payer BC, MEDICARE ==
[2021-01-10 13:38] LABS: #Basophils 0.1 10x3/uL (0.0-0.2); #Eosinphils 0.4 10x3/uL (0.0-0.5); #Neutrophils 5.4 10x3/uL (1.5-8.4); %Basophils 0.6 % (0.0-2.0); %Eosinophils 3.5 % (0.0-6.0); %Lymphocytes 33.2 % (18.0-47.0); %Monocytes 9.8 % (0.0-10.0); %Neutrophils 52.3 % (40.0-75.0); Hemoglobin 13.9 g/dL (13.5-17.5); Mean Corpuscular HGB CONC 33.7 g/dL (32.0-36.0); Mean Corpuscular Hemoglobin 31.9 pg (27.0-33.0); Mean Corpuscular Volume 94.7 fl (81.2-95.1); Mean Platelet Volume 9.3 fl (7.4-10.4); Platelet Count 285 10x3/uL (150-450); RBC Distribution Width 12.3 % (11.5-14.5); Red Blood Cell (RBC) Count 4.36 10x6/uL (4.32-5.72); White Blood Cell (WBC) Count 10.3 10x3/uL (3.5-10.5)
[2021-01-10 13:46] LABS: Anion Gap 13 mmol/L (10-20); BUN (Urea Nitrogen) 9 mg/dL (8.4-25.7); Calc. Creatinine Clearance 0 mL/min (70-130); Calcium 9.3 mg/dL (7.8-10.44); Carbon Dioxide 24 mmol/L (23-31); Chloride 107 mmol/L (98-107); Glucose 98 mg/dL (80-115); Potassium 4.7 mmol/L (3.5-5.1); Sodium 139 mmol/L (136-145)
[2021-01-11 11:59] LABS: SARS-CoV-2 PCR by NAA Not Detected (NotDetected)
== END 2021-01-10 12:37 | disposition home or self-care (01) ==
LOC: LABBT 12:36
PROVIDERS: ATTEND Surgery
DX: Z01.818 Encounter for other preprocedural examination (principal); K44.9 Diaphragmatic hernia without obstruction or gangrene; Z20.822 Contact with and (suspected) exposure to COVID-19
CPT/HCPCS: 80048; 85025; 93005; 93010; U0003; U0005

== ENCOUNTER 2021-01-15 05:54 | Observation (INO) | payer BC, MEDICARE ==
[2021-01-15] MEDS ORDERED: ceFAZolin 2 GM/DEX 5% 100 ML BAG ONE (06:11)
[2021-01-15] MEDS ORDERED: Bupivacaine 0.25% 10 ML VIAL ONE (06:48)
[2021-01-15] MEDS ORDERED: Lidocaine 1% w/Epinephrine 1:100K 20 ML VIAL ONE (06:48)
[2021-01-15] MEDS ORDERED: Fentanyl 100 MCG/2 ML VIAL ONE ×2 (06:56→11:01)
[2021-01-15] MEDS ORDERED: SUGAMMADEX SODIUM 200 MG/2 ML VIAL ONE (06:57)
[2021-01-15] MEDS ORDERED: Ketamine 50 MG/ML (10ML VIAL) ONE (07:29)
[2021-01-15] MEDS ORDERED: Rocuronium Bromide 10 MG/ML (10ML VIAL) ONE (08:02)
[2021-01-15] MEDS ORDERED: Dexamethasone 20 MG/5 ML VIAL ONE (08:02)
[2021-01-15] MEDS ORDERED: PROPOFOL 200 MG/20 ML VIAL ONE (08:02)
[2021-01-15] MEDS ORDERED: Lidocaine 1% PF 5 ML VIAL ONE (08:02)
[2021-01-15] MEDS ORDERED: Glycopyrrolate 0.2 MG/ML 5 ML SYRINGE ONE (08:02)
[2021-01-15] MEDS ORDERED: Ondansetron PF 4 MG/2 ML Vial ONE (08:02)
[2021-01-15] MEDS ORDERED: Labetalol HCl 100 MG/20 ML VIAL ONE ×2 (08:02→11:51)
[2021-01-15] MEDS ORDERED: Ondansetron HCl/PF 4 MG/2 ML Vial IVP PRN (10:03)
[2021-01-15] MEDS ORDERED: Promethazine HCl 25 MG/ML VIAL IM PRN ×2 (10:03→12:34)
[2021-01-15] MEDS ORDERED: Promethazine HCl 25 MG/ML VIAL IVPB PRN (10:03)
[2021-01-15] MEDS ORDERED: Acetaminophen 325 MG TAB PO PRN (12:34)
[2021-01-15] MEDS ORDERED: Dextrose 5% in Water 1,000 ML IV PRN (12:34)
[2021-01-15] MEDS ORDERED: Dextrose 50% Abboject 50 ML SYRINGE SLOW IVP PRN ×2 (12:34)
[2021-01-15] MEDS ORDERED: Non-Formulary Item 1 EACH (Melatonin [Melatonin] 5 MG Tablet) PO PRN (12:34)
[2021-01-15] MEDS ORDERED: Ondansetron PF 4 MG/2 ML Vial IVP PRN (12:34)
[2021-01-15] MEDS ORDERED: Pentazocine HCl/Naloxone HCl 50/0.5 MG TAB PO PRN (12:34)
[2021-01-15] MEDS ORDERED: HumaLOG 300 UNITS/3 ML VIAL SC PRN (12:34)
[2021-01-15] MEDS ORDERED: Melatonin 3 MG TAB PO PRN (12:43)
[2021-01-15] MEDS: Morphine 4 MG/ML VIAL SLOW IVP PRN ×2 (13:10→17:04)
[2021-01-15] MEDS: Sodium Chloride 0.9% 1,000 ML IV SCH (13:25)
[2021-01-15] MEDS: hydrALAZINE 20 MG/ML VIAL SLOW IVP PRN (15:27)
[2021-01-15 16:56] VITALS: BMI 31.5
[2021-01-15] MEDS ORDERED: Ezetimibe 10 MG TAB PO SCH (21:00)
[2021-01-16] MEDS: Sodium Chloride 0.9% 1,000 ML IV SCH (02:01)
[2021-01-16] MEDS: hydrALAZINE 20 MG/ML VIAL SLOW IVP PRN ×2 (02:04→05:43)
[2021-01-16 07:41] VITALS: BP 140/76; TEMP 97.7
[2021-01-16] MEDS: Morphine 4 MG/ML VIAL SLOW IVP PRN (07:58)
[2021-01-16] MEDS ORDERED: Amitriptyline HCl 25 MG TAB PO SCH ×2 (09:00→21:00)
[2021-01-16] MEDS ORDERED: Enoxaparin Sodium 40 MG/0.4 ML SYRINGE SC SCH (09:00)
[2021-01-16] MEDS ORDERED: Non-Formulary Item 1 EACH (Amitriptyline Hcl [Amitriptyline Hcl] 50 MG Tablet) PO SCH (09:00)
[2021-01-16] MEDS ORDERED: Pantoprazole 40 MG VIAL IVP SCH (09:00)
== END 2021-01-16 10:25 | disposition home or self-care (01) ==
LOC: SDC 05:54 → T4-B 12:05 → INTOOBSV 12:05
PROVIDERS: ADMIT Surgery; ATTEND Surgery
PROC: 0BUT4JZ Supplement Diaphragm with Synthetic Substitute, Percutaneous Endoscopic Approach (ICD-10-PCS; principal; 2021-01-16)
DX: K44.9 Diaphragmatic hernia without obstruction or gangrene (principal); K21.9 Gastro-esophageal reflux disease without esophagitis; I10 Essential (primary) hypertension; E78.5 Hyperlipidemia, unspecified; I25.2 Old myocardial infarction; I48.91 Unspecified atrial fibrillation; Z86.73 Personal history of transient ischemic attack (TIA), and cerebral infarction without residual deficits; Z87.891 Personal history of nicotine dependence; M10.9 Gout, unspecified; Z79.82 Long term (current) use of aspirin; Z79.84 Long term (current) use of oral hypoglycemic drugs; Z79.899 Other long term (current) drug therapy; Z88.5 Allergy status to narcotic agent; Z88.8 Allergy status to other drugs, medicaments and biological substances; Z95.0 Presence of cardiac pacemaker; Z95.1 Presence of aortocoronary bypass graft; Z95.5 Presence of coronary angioplasty implant and graft
CPT/HCPCS: 36416; 96372; 96374; 96375; C1776; C9113; G0378; J0360; J1100; J1650; J1815; J2270; J2405; J2550; J2704; J3010; J7050; Q4130; S0020